=== PATIENT | female | born 1980 | race Two or more races ===

== ENCOUNTER 2020-09-20 14:51 | Outpatient (REF) | payer MEDICAID, SELFPAY | END 2020-09-20 14:52 | disposition home or self-care (01) | LOC: HO.MRI 14:51 | PROVIDERS: Visit Provider Family Medicine | DX: H93.13 Tinnitus, bilateral (principal) | CPT/HCPCS: 70553; A9585 ==

== ENCOUNTER 2020-10-14 09:48 | Outpatient (REF) | payer MEDICAID, SELFPAY ==
--- NOTE | ~2020-10-14 | US_ITS ---
EXAMINATION: US ABDOMEN COMPLETE CLINICAL INFORMATION: Fatty liver. COMPARISON: Ultrasound abdomen complete dated 08/15/2018. Ultrasound renals only dated 09/10/2014. TECHNIQUE: Real-time imaging of the abdominal viscera. FINDINGS: PANCREAS: Normal. ABDOMINAL AORTA: The mid and distal segments are normal in caliber. INFERIOR VENA CAVA: Visualized portions are normal. LIVER: Liver echotexture is increased. The liver is normal in size. The liver contour is normal. No focal hepatic lesion. There is no intrahepatic biliary duct dilatation seen. GALLBLADDER: Normal. The gallbladder is physiologically distended without evidence of stones, sludge, polyps, wall thickening or pericholecystic fluid. COMMON BILE DUCT: Normal in caliber measuring 0.6 cm in diameter. RIGHT KIDNEY: Normal. No hydronephrosis. No renal calculi or focal parenchymal lesions. The kidney measures 10.4 cm in maximum dimension. LEFT KIDNEY: Normal. No hydronephrosis. No renal calculi or focal parenchymal lesions. The kidney measures 9.8 cm in maximum dimension. SPLEEN: Normal. The spleen measures 10.0 cm in maximum dimension. FREE FLUID: None. US/US abdomen complete IMPRESSION: Echogenic liver probably representing fatty infiltration otherwise unremarkable exam
== END 2020-10-14 09:49 | disposition home or self-care (01) ==
LOC: HO.US 09:48
PROVIDERS: PCP Family Medicine; Visit Provider Family Medicine
DX: K76.0 Fatty (change of) liver, not elsewhere classified (principal)
CPT/HCPCS: 76700

== ENCOUNTER 2021-05-29 15:39 | Outpatient (REF) | payer MEDICAID, SELFPAY ==
--- NOTE | ~2021-05-29 | US_ITS ---
EXAMINATION: US PELVIS CLINICAL INFORMATION: Uterine and vaginal bleeding COMPARISON: None TECHNIQUE: Ultrasound of the pelvis is performed using both transabdominal and transvaginal transducers along with Doppler. Transvaginal imaging is performed due to inadequate visualization transabdominally. FINDINGS: Uterus: The uterus is anteverted and measures 9.8 x 4.1 x 6.0 cm. The double wall endometrial thickness is 13 mm. There are multiple cystic lesions within the endometrial canal. The uterus is smooth in contour and has normal myometrial echogenicity. No visible fibroid. Adnexa: Both ovaries are visualized. There is normal color flow to the adnexa. There is no ovarian torsion. There is no pelvic ascites or fluid collection. Right ovary measures 2.0 x 2.3 x 2.5 cm. There is a 1.5 x 1.3 x 1.5 cm cyst. There are multiple additional small follicles throughout the right ovary. Left ovary measures 2.2 x 1.5 x 2.1 cm. US/US pelvic and transvaginal IMPRESSION: 1. Multiple follicles in the right ovary and 1.5cm right ovarian cyst. 2. Multiple cystic lesions in the endometrium suggests adenomyosis.
== END 2021-05-29 15:40 | disposition home or self-care (01) ==
LOC: HO.US 15:39
PROVIDERS: PCP Family Medicine; Visit Provider Family Medicine
DX: N93.9 Abnormal uterine and vaginal bleeding, unspecified (principal); N83.01 Follicular cyst of right ovary; N80.0 Endometriosis of uterus
CPT/HCPCS: 76830; 76856

== ENCOUNTER 2021-07-14 15:15 | Outpatient (REF) | payer MEDICAID, SELFPAY ==
[2021-07-15 03:00] LABS: CT PCR NOT DETECTED (Not Detect.); NG PCR NOT DETECTED (Not Detect.)
[2021-07-15 09:06] LABS: BV Int Neg Control Negative (Negative); BV Int Pos Control Positive (Positive)
== END 2021-07-14 15:16 | disposition home or self-care (01) ==
LOC: HO.LAB 15:15
PROVIDERS: PCP Family Medicine; Visit Provider Advanced Practice Midwife
DX: N92.6 Irregular menstruation, unspecified (principal)
CPT/HCPCS: 81003; 81025; 87480; 87491; 87510; 87591; 87660; 99202

== ENCOUNTER 2021-12-11 11:58 | Outpatient (REF) | payer MEDICAID, SELFPAY ==
[2021-12-11 13:21] LABS: Hematocrit 36.5 % (37.0-47.0); Hemoglobin 11.2 g/dl (12.0-16.0); Mean Corpuscular HGB Conc 30.7 g/dl (31.0-35.0); Mean Corpuscular Hemoglobin 22.4 pg (27.0-33.0); Mean Corpuscular Volume 73.1 fL (80.0-98.0); Mean Platelet Volume 10.2 fL (9.4-12.3); Platelet Count 374 X10*3/uL (160-400); Red Blood Count 4.99 X10*6/uL (4.20-5.50); Red Cell Distribution Width 16.8 % (11.0-16.0); White Blood Count 8.8 X10*3/uL (4.8-10.8)
[2021-12-11 13:59] LABS: HCG Quantitative < 2 mIU/mL; TSH reflex Free T4 3.14 uIU/mL (0.32-4.0)
[2021-12-11 19:22] LABS: CT PCR NOT DETECTED (Not Detect.); NG PCR NOT DETECTED (Not Detect.)
[2021-12-18 06:42] LABS: HPV mRNA E6/E7 rflx Not Detected (Not Detected)
== END 2021-12-11 11:59 | disposition home or self-care (01) ==
LOC: HO.LAB 11:58
PROVIDERS: PCP Family Medicine; Visit Provider Obstetrics & Gynecology
DX: Z01.419 Encounter for gynecological examination (general) (routine) without abnormal findings (principal); N93.9 Abnormal uterine and vaginal bleeding, unspecified; Z11.3 Encounter for screening for infections with a predominantly sexual mode of transmission; Z11.8 Encounter for screening for other infectious and parasitic diseases; Z11.51 Encounter for screening for human papillomavirus (HPV)
CPT/HCPCS: 36415; 84443; 84702; 85027; 87491; 87591; 87624; 88142; 99202

== ENCOUNTER 2022-01-05 09:51 | Outpatient (REF) | payer MEDICAID, SELFPAY | END 2022-01-05 09:52 | disposition home or self-care (01) | LOC: HO.LAB 09:51 | PROVIDERS: PCP Family Medicine; Visit Provider Obstetrics & Gynecology | DX: Z32.02 Encounter for pregnancy test, result negative (principal); N93.9 Abnormal uterine and vaginal bleeding, unspecified | CPT/HCPCS: 58100; 81025; 88305; 88342; 88360 ==

== ENCOUNTER 2022-01-27 13:57 | Outpatient (REF) | payer MEDICAID, SELFPAY ==
--- NOTE | ~2022-01-27 | US_ITS ---
EXAMINATION: US PELVIS CLINICAL INFORMATION: Abnormal bleeding. COMPARISON: Previous pelvic ultrasound most recent May 2021. TECHNIQUE: Ultrasound of the pelvis is performed using both transabdominal and transvaginal transducers along with Doppler. Transvaginal imaging is performed due to inadequate visualization transabdominally. FINDINGS: The uterus is anteverted and retroflexed and measures 9.3 x 4.7 x 5.5 cm in dimension. No focal uterine lesion is seen. Endometrial thickness is normal measuring 1.2 cm. The right ovary measures 2.9 x 1.8 x 2.9 cm. There are multiple small follicles or cysts seen in the right ovary, all measuring less than 1 cm. The left ovary is seen transabdominally only and is normal-appearing. The left ovary measures 2.3 x 1.3 x 1.5 cm. There is no fluid in the pelvis. US/US pelvic and transvaginal IMPRESSION: Unremarkable exam.
--- NOTE | ~2022-01-27 | MM_ITS ---
EXAMINATION: MM SCREENING DIGITAL BREAST TOMOSYNTHESIS, BILATERAL CLINICAL INFORMATION: Screening. Asymptomatic. The lifetime risk of breast cancer based on the Tyrer-Cuzick Model is 9.9%. COMPARISON: Mammography: 01/27/2018. TECHNIQUE: Digital breast tomosynthesis is performed in both the craniocaudal and mediolateral oblique views along with computer-aided detection (CAD). Synthesized 2D images are generated from the tomosynthesis. FINDINGS: There are scattered areas of fibroglandular density (ACR BI-RADS breast composition Category b). There is stable parenchymal pattern of the right breast without new abnormal dominant mass or suspicious grouping of microcalcifications. On craniocaudal view in the deep central aspect there is a region of density most likely representing superimposition of fibroglandular tissue however it is not identified on prior examination and spot compression film is recommended. MM/MM tomosynthesis screening BI IMPRESSION: Left breast density for further evaluation with spot compression view on craniocaudal projection. ASSESSMENT: BI-RADS 0: Incomplete - Need Additional Imaging Evaluation RECOMMENDATION: 1. Additional views of the left breast 2. Targeted ultrasound if warranted after review of the additional views. 3. Radiology department staff will contact the patient for additional imaging. This patient's information was entered into a reminder system with a target due date for their next mammogram.
== END 2022-01-27 13:58 | disposition home or self-care (01) ==
LOC: HO.US 13:57
PROVIDERS: Visit Provider Obstetrics & Gynecology
DX: Z12.31 Encounter for screening mammogram for malignant neoplasm of breast (principal); N93.9 Abnormal uterine and vaginal bleeding, unspecified
CPT/HCPCS: 76830; 76856; 77063; 77067; 99212

== ENCOUNTER 2022-02-12 14:04 | Outpatient (REF) | payer MEDICAID, SELFPAY ==
--- NOTE | ~2022-02-12 | MM_ITS ---
EXAMINATION: MM DIAGNOSTIC DIGITAL BREAST TOMOSYNTHESIS, LEFT CLINICAL INFORMATION: Recall from screening for question of asymmetric density posterior central left breast on CC view. COMPARISON: Mammography: 01/27/2022, baseline mammography 01/27/2018. TECHNIQUE: Digital breast tomosynthesis is performed. 2D images are generated from the tomosynthesis. The following views are obtained: Spot CC x3, standard CC. FINDINGS: There are scattered areas of fibroglandular density (ACR BI-RADS breast composition Category b). There is normal fibroglandular tissue similar to the baseline mammography 2017. There is no interval mass or architectural abnormality. No parenchymal asymmetry or asymmetric density. Results are discussed with the patient at time of visit, using an neuro psych sales specialist. MM/MM tomosynthesis added views L IMPRESSION: No mammographic evidence of malignancy. ASSESSMENT: BI-RADS 1: Negative RECOMMENDATION: Routine annual mammography screening. This patient's information was entered into a reminder system with a target due date for their next mammogram.
== END 2022-02-12 14:05 | disposition home or self-care (01) ==
LOC: HO.MAMMO 14:04
PROVIDERS: Visit Provider Obstetrics & Gynecology
DX: R92.2 Inconclusive mammogram (principal)
CPT/HCPCS: 77061; 77065

== ENCOUNTER → 2022-03-05 12:49 | Outpatient (BNVA) | payer MEDICAID, SELFPAY | PROVIDERS: PCP Family Medicine; Visit Provider Obstetrics & Gynecology | DX: N93.9 Abnormal uterine and vaginal bleeding, unspecified (principal) | CPT/HCPCS: 99212 ==

== ENCOUNTER 2022-07-17 10:42 | Outpatient (REF) | payer MEDICAID, SELFPAY ==
--- NOTE | ~2022-07-17 | US_ITS ---
EXAMINATION: US ABDOMEN COMPLETE CLINICAL INFORMATION: Right upper quadrant pain. Rule out cholecystitis. COMPARISON: Ultrasound abdomen 10/14/2020, ultrasound abdomen 08/15/2018 TECHNIQUE: Real-time imaging of the abdominal viscera. FINDINGS: PANCREAS: Normal. ABDOMINAL AORTA: The proximal, mid, and distal segments are normal in caliber. INFERIOR VENA CAVA: Visualized portions are normal. LIVER: Liver is enlarged measuring 17 cm in span. The liver contour is normal. There is diffuse increased liver parenchymal echogenicity, consistent with infiltrative hepatocellular disease. No focal hepatic lesion. There is no intrahepatic biliary duct dilatation seen. GALLBLADDER: Normal. The gallbladder is physiologically distended without evidence of stones, sludge, polyps, wall thickening or pericholecystic fluid. COMMON BILE DUCT: Minimally greater than expected for age measuring 0.7 cm in diameter. RIGHT KIDNEY: Normal. No hydronephrosis. No renal calculi or focal parenchymal lesions. The kidney measures 10.2 cm in maximum dimension. LEFT KIDNEY: Normal. No hydronephrosis. No renal calculi or focal parenchymal lesions. The kidney measures 10.1 cm in maximum dimension. SPLEEN: Normal. The spleen measures 9.5 cm in maximum dimension. FREE FLUID: None. US/US abdomen complete IMPRESSION: Liver is mildly enlarged. Increased hepatic echogenicity which can be seen in the setting of hepatic steatosis or underlying liver disease. Common bile duct measures minimally greater than expected for age at 0.7 cm. No intrahepatic biliary duct dilatation.
== END 2022-07-17 10:43 | disposition home or self-care (01) ==
LOC: HO.US 10:42
PROVIDERS: PCP Family Medicine; Visit Provider Family Medicine
DX: R10.11 Right upper quadrant pain (principal)
CPT/HCPCS: 76700

== ENCOUNTER 2023-01-07 18:32 | Outpatient (REF) | payer MEDICAID, SELFPAY | END 2023-01-07 18:33 | disposition home or self-care (01) | LOC: HO.HHCLNP 18:32 | PROVIDERS: Visit Provider Family Medicine | DX: N39.0 Urinary tract infection, site not specified (principal) | CPT/HCPCS: 87086 ==

== ENCOUNTER 2023-02-10 09:03 | Outpatient (REF) | payer MEDICAID, SELFPAY ==
[2023-02-10 11:45] LABS: MANUAL DIFF FLAG NO
[2023-02-10 11:56] LABS: Basophils Absolute Auto 0.1 X10*3/uL (0.0-0.2); Basophils Percent Auto 0.5 % (0-2); Eosinophils Absolute Auto 0.3 X10*3/uL (0.0-0.4); Eosinophils Percent Auto 3.4 % (0-4); Hematocrit 36.5 % (37.0-47.0); Hemoglobin 11.2 g/dl (12.0-16.0); Imm Gran Abs Auto 0.05 X10*3/uL (0.00-0.03); Imm Gran Pct Auto 0.5 % (0.0-0.4); Lymphocytes Absolute Auto 3.4 X10*3/uL (1.2-4.9); Lymphocytes Percent Auto 35.9 % (20-40); Mean Corpuscular HGB Conc 30.7 g/dl (31.0-35.0); Mean Corpuscular Hemoglobin 22.9 pg (27.0-33.0); Mean Corpuscular Volume 74.5 fL (80.0-98.0); Mean Platelet Volume 11.2 fL (9.4-12.3); Monocytes Absolute Auto 0.5 X10*3/uL (0.1-1.2); Monocytes Percent Auto 5.2 % (2-11); Neutrophils Absolute Auto 5.1 x10*3/uL (2.0-8.3); Neutrophils Percent Auto 54.5 % (45-73); Platelet Count 279 X10*3/uL (160-400); Red Cell Distribution Width 18.5 % (11.0-16.0); White Blood Count 9.4 X10*3/uL (4.8-10.8)
[2023-02-10 12:13] LABS: Estimated Average Glucose 160 mg/dL; Hemoglobin A1c % 7.2 % (<6.0)
[2023-02-10 12:43] LABS: Alanine Aminotransferase 115 U/L (0-31); Albumin Level 3.5 g/dL (3.5-5.0); Alkaline Phosphatase 109 U/L (39-117); Anion Gap 12 (12-20); Aspartate Amino Transferase 136 U/L (5-31); Bilirubin Direct 0.3 mg/dL (0.0-0.5); Bilirubin Total 0.7 mg/dL (0.0-1.0); Blood Urea Nitrogen 7 mg/dL (9-16); Calcium 8.9 mg/dL (8.4-10.2); Carbon Dioxide 25 mmol/L (22-29); Chloride 104 mmol/L (96-108); Cholesterol 172 mg/dL (<200); Estimated Glomerular Filt Rate > 60; Glucose Random 143 mg/dL (60-115); HDL Cholesterol 43 mg/dL (>40); LDL Cholesterol Calculated 97 mg/dL (<100); Potassium 3.7 mmol/L (3.3-5.1); Sodium 137 mmol/L (135-145); Triglycerides 164 mg/dL (<150)
[2023-02-10 13:05] LABS: CT PCR NOT DETECTED (Not Detect.); NG PCR NOT DETECTED (Not Detect.)
[2023-02-10 13:07] LABS: Free T4 (Free Thyroxine) 0.92 ng/dL (0.71-1.85); Thyroid Stimulating Hormone 5.72 uIU/mL (0.32-4.0); Vitamin D 25-OH Total 19.3 ng/mL (>30)
[2023-02-11 08:13] LABS: HBS Num1 4.32 mIU/mL (0-7.99); HIV AB/AG Nonreactive (Nonreactive); HIV Num 1 0.06 S/CO (0.00-0.99); Hepatitis B Surface Antigen Negative (Negative); ~Hepatitis B Surface Antibody NONREACTIVE (Nonreactive)
[2023-02-11 08:52] LABS: ~HepC Num1 0.07 S/CO (0.00-0.79); ~Hepatitis C Antibody Nonreactive (Nonreactive)
[2023-02-12 04:37] LABS: Syphilis Screen Nonreactive (Nonreactive)
[2023-02-12 12:12] LABS: Alpha Fetoprotein 3.9 ng/mL
== END 2023-02-10 09:04 | disposition home or self-care (01) ==
LOC: HO.HHCL 09:03
PROVIDERS: Visit Provider Family Medicine
DX: Z11.4 Encounter for screening for human immunodeficiency virus [HIV] (principal); Z11.3 Encounter for screening for infections with a predominantly sexual mode of transmission; N39.0 Urinary tract infection, site not specified
CPT/HCPCS: 0353U; 80048; 80061; 80076; 82105; 82306; 83036; 84439; 84443; 85025; 86706; 86780; 86803; 87086; 87340; 87389

== ENCOUNTER 2023-02-17 17:02 | Outpatient (REF) | payer MEDICAID, SELFPAY ==
[2023-02-18 04:44] LABS: CT PCR NOT DETECTED (Not Detect.); NG PCR NOT DETECTED (Not Detect.)
[2023-02-18 11:38] LABS: BV Int Neg Control Negative (Negative); BV Int Pos Control Positive (Positive)
== END 2023-02-17 17:03 | disposition home or self-care (01) ==
LOC: HO.HHCLNP 17:02
PROVIDERS: Visit Provider Family Medicine
DX: R30.0 Dysuria (principal)
CPT/HCPCS: 0353U; 87086; 87480; 87510; 87660

== ENCOUNTER 2023-03-08 07:52 | Outpatient (REF) | payer MEDICAID, OTHER, SELFPAY ==
--- NOTE | ~2023-03-08 | US_ITS ---
EXAMINATION: US ABDOMEN COMPLETE CLINICAL INFORMATION: Fatty liver. COMPARISON: Ultrasound abdomen complete 07/17/2022 and 10/14/2020. TECHNIQUE: Real-time imaging of the abdominal viscera. FINDINGS: PANCREAS: Normal. ABDOMINAL AORTA: The proximal, mid, and distal segments are normal in caliber. INFERIOR VENA CAVA: Visualized portions are normal. LIVER: The liver is normal in size. The liver contour is normal. Liver echotexture is slightly increased. There is a newly appreciated 6 mm minimally complex cyst in the left lobe of the liver. There is no intrahepatic biliary duct dilatation seen. GALLBLADDER: Normal. The gallbladder is physiologically distended without evidence of stones, sludge, polyps, wall thickening or pericholecystic fluid. COMMON BILE DUCT: Normal in caliber measuring 0.7 cm in diameter. RIGHT KIDNEY: Normal. No hydronephrosis. No renal calculi or focal parenchymal lesions. The kidney measures 10.9 cm in maximum dimension. LEFT KIDNEY: Normal. No hydronephrosis. No renal calculi or focal parenchymal lesions. The kidney measures 9.9 cm in maximum dimension. SPLEEN: Normal. The spleen measures 10.7 cm in maximum dimension. FREE FLUID: None. US/US abdomen complete IMPRESSION: Slightly echogenic liver probably representing fatty infiltration. Newly appreciated small liver cyst.
== END 2023-03-08 07:53 | disposition home or self-care (01) ==
LOC: HO.US 07:52
PROVIDERS: PCP Family Medicine; Visit Provider Family Medicine
DX: K76.0 Fatty (change of) liver, not elsewhere classified (principal)
CPT/HCPCS: 76700

== ENCOUNTER 2023-07-07 17:30 | Outpatient (REF) | payer MEDICAID, OTHER, SELFPAY | END 2023-07-07 17:31 | disposition home or self-care (01) | LOC: HO.HHCLNP 17:30 | PROVIDERS: Visit Provider Family Medicine | DX: N89.8 Other specified noninflammatory disorders of vagina (principal) | CPT/HCPCS: 36415; 81513 ==

== ENCOUNTER 2023-07-19 13:19 | Outpatient (REF) | payer MEDICAID, OTHER, SELFPAY | END 2023-07-19 13:20 | disposition home or self-care (01) | LOC: HO.MAMMO 13:19 | PROVIDERS: PCP Family Medicine; Visit Provider Family Medicine | DX: Z12.31 Encounter for screening mammogram for malignant neoplasm of breast (principal) | CPT/HCPCS: 77063; 77067 ==

== ENCOUNTER → 2023-07-19 13:30 | Outpatient (BNV) | payer SELFPAY | PROVIDERS: PCP Family Medicine; Visit Provider Radiology Diagnostic Radiology | DX: Z12.31 Encounter for screening mammogram for malignant neoplasm of breast (principal) | CPT/HCPCS: 77063; 77067 ==

== ENCOUNTER 2023-09-26 21:18 | Emergency (ER) | payer MEDICAID, OTHER, SELFPAY ==
[2023-09-26 21:27] VITALS: BP 140/68; PULSE 86; RESP 19; TEMP 36.5; O2SAT 100; BMI 37.5
[2023-09-26 21:39] LABS: MANUAL DIFF FLAG NO
[2023-09-26 21:40] LABS: Basophils Absolute Auto 0.1 X10*3/uL (0.0-0.2); Basophils Percent Auto 0.5 % (0-2); Eosinophils Absolute Auto 0.3 X10*3/uL (0.0-0.4); Eosinophils Percent Auto 2.6 % (0-4); Hematocrit 32.2 % (37.0-47.0); Imm Gran Abs Auto 0.03 X10*3/uL (0.00-0.03); Imm Gran Pct Auto 0.3 % (0.0-0.4); Lymphocytes Absolute Auto 3.8 X10*3/uL (1.2-4.9); Lymphocytes Percent Auto 38.3 % (20-40); Mean Corpuscular HGB Conc 31.1 g/dl (31.0-35.0); Mean Corpuscular Hemoglobin 21.4 pg (27.0-33.0); Monocytes Absolute Auto 0.5 X10*3/uL (0.1-1.2); Monocytes Percent Auto 4.6 % (2-11); Neutrophils Absolute Auto 5.4 x10*3/uL (2.0-8.3); Neutrophils Percent Auto 53.7 % (45-73); Platelet Count 403 X10*3/uL (160-400); Red Blood Count 4.67 X10*6/uL (4.20-5.50); Red Cell Distribution Width 17.7 % (11.0-16.0)
[2023-09-26 21:55] LABS: Appearance Urine Clear; Color Urine Yellow; Glucose Urine UA Negative (Negative); Leukocyte Esterase Urine Negative (Negative); Nitrite Urine Negative (Negative); PH 6.5 (5.0-9.0); Specific Gravity - Urine <= 1.005 (1.005-1.025); Urine Blood Negative (Negative); Urine Ketones Negative (Negative); Urine Protein Negative (Neg-Trace)
[2023-09-26 21:57] LABS: UPreg QC Valid YES; Urine Pregnancy NEGATIVE (NEGATIVE)
[2023-09-26 22:13] LABS: Alanine Aminotransferase 46 U/L (0-31); Alkaline Phosphatase 109 U/L (39-117); Aspartate Amino Transferase 38 U/L (5-31); Bilirubin Total 0.4 mg/dL (0.0-1.0); Blood Urea Nitrogen 10 mg/dL (9-16); Calcium 9.4 mg/dL (8.4-10.2); Carbon Dioxide 25 mmol/L (22-29); Creatinine Clr Calc Pharmacy 86.5; Estimated Glomerular Filt Rate > 60; Glucose Random 141 mg/dL (60-115); Lipase 47 U/L (8-78); Total Protein 7.8 g/dL (6.5-8.0)
[2023-09-26 22:20] LABS: Chloride 105 mmol/L (96-108); Potassium 3.9 mmol/L (3.3-5.1); Sodium 139 mmol/L (135-145)
[2023-09-26 22:34] LABS: Anion Gap 11 (12-20)
[2023-09-27 03:19] VITALS: BP 121/74; PULSE 71; RESP 16; TEMP 36.7; O2SAT 99
--- NOTE | 2023-09-27 05:42 | ED.ABDPAIN ---
HPI - Abdominal Pain General Chief Complaint: Abdominal Pain Stated Complaint: rght side abd pain Time Seen by Provider: 09/27/23 05:40 Source: patient Mode of arrival: ambulatory Limitations: language barrier History of Present Illness HPI narrative: 43-year-old female with a history of diabetes mellitus who presents emergency department for evaluation of upper abdominal pain x2 days. The patient states that she has had intermittent abdominal pain, she points to her right upper quadrant and epigastric area when asked to localize the pain. She states the pain is a stretching/sharp/burning pain. She states that the pain is immediately worse after eating. The pain does not radiate to her back or shoulders. She denies nausea, vomiting or diarrhea. She states that this is a 1st episode of this type of pain. She states she does get heartburn and occasionally takes an antacid pill but does not know the name of this pill. Related Data Previous Rx's ?Medication ?Instructions ?Recorded medroxyprogesterone 10 mg tablet 10 mg PO DAILY 10 days #30 tabs 03/05/22 (Provera) aluminum hydrox-magnesium carb 254 10 ml PO QID PRN dyspepsia #355 mL 09/27/23 mg-237.5 mg/5 mL oral suspension (Gaviscon Extra Strength) ferrous sulfate 325 mg (65 mg 325 mg PO BID #60 tabs 09/27/23 iron) tablet,delayed release omeprazole 20 mg tablet,delayed 20 mg PO DAILY #30 tabs 09/27/23 release Allergies Allergy/AdvReac Type Severity Reaction Status Date / Time No Known Allergies Allergy Verified 09/26/23 21:29 Review of Systems Review of Systems Yes all other systems are reviewed and are negative FORMERLY [facility], [facility] Past Medical History FOR[facility]LY [facility], [facility] Narrative: Past medical history: Diabetes. Surgical history: . Social history: She denies tobacco use. She drinks alcohol 1-2 beers 2 times a week. She denies drug use. Surgical History History of bilateral tubal ligation Hx of section Family History Family History Maternal Grandmother History of breast cancer Social History Social History Household Members: Spouse and Children Housing: Condominium Alcohol intake: current Patient Tobacco Use Status: Never used Tobacco Advance Directives: No Advance Directives Information Provided: No Sexual orientation: Straight/Heterosexual Gender identity: Female Physical Exam ED Vital Signs: Vital Signs - 24 hr 09/26/23 21:27 09/27/23 03:19 Temperature 97.7 F 98.1 F Pulse Rate 86 71 Respiratory Rate 19 16 Blood Pressure 140/68 H 121/74 Pulse Oximetry 100 99 Oxygen Delivery Method Room Air Room Air BMI result Body Mass Index 37.5 Vital signs were normal Exam: General: Awake, alert in no distress Head: Normocephalic, atraumatic EENT: PERRL, Lids normal, sclera normal, conjunctiva normal, nose normal , ears normal, throat without erythema or exudates Neck: Supple, no adenopathy Lung: breath sounds symmetric, no wheezing, rales or rhonchi Chest: symmetric movement, nontender Heart: regular rate and rhythm, normal S1, S2 no murmurs or rubs Abdomen: Soft, patient has moderate epigastric tenderness, patient has [id number] right upper quadrant tenderness with a negative Amaya sign, she has normoactive bowels sounds, there has no voluntary or involuntary guarding Back: no vertebral tenderness, no CVAT Extremities: no deformities, moves all extremities symmetrically Neuro: Awake, alert, oriented, normal speech, moves all extremities symmetrically Psych: Pleasant, cooperative or Medical Decision Making Medical Decision Making MDM Narrative: 43-year-old female with a history of diabetes mellitus who presents emergency department for evaluation of epigastric, right upper quadrant, intermittent abdominal pain x2 days, immediately worse after eating with no radiation of the pain to her back or shoulder blades. Patient does get dyspepsia and takes a medication PRN but does not know the name this medication. Vital signs were normal. Exam did reveal moderate epigastric and mild to moderate right upper quadrant tenderness with a negative Amaya sign. Differential diagnosis: ?Includes but is not limited to biliary colic, renal colic, gastritis, pancreatitis Following evaluation was ordered: CBC, CMP, lipase, urinalysis, urine test Patient was initially treated with the following: Maalox 30 cc, viscous lidocaine 10 cc, 10 cc orally Course: 06:11 My interpretation patient's laboratory evaluation as follows: Microcytic anemia with an H&H of 10 and 32 with an MCV of 69. Elevated glucose 141. Elevated AST and ALT of 35 and 46. Non elevated bilirubin. Urinalysis was negative. Urine test was negative. Patient's symptoms are most likely consistent with gastritis and I did discuss this with the patient. Of note the patient did have abdominal ultrasound 03/08/2023 which revealed no gallstones. Patient was started on Prilosec 20 mg once a day for 1 month and extra-strength Gaviscon 10 cc before meals and at bedtime. She was also given prescription for ferrous sulfate 325 twice a day for 2 months to treat her microcytic anemia. Patient was given printed and verbal instructions and discharged home Admission/Observation Consideration of admission/observation: Escalation of care including admission/observation considered Lab Data MDM Lab Attestation statement: I reviewed the patient's lab results. 09/26/23 21:35 09/26/23 21:35 Labs: Lab Results 09/26/23 09/26/23 Range/Units 21:35 21:43 WBC 10.0 (4.8-10.8) X10*3/uL RBC 4.67 (4.20-5.50) X10*6/uL Hgb 10.0 L (12.0-16.0) g/dl Hct 32.2 L (37.0-47.0) % MCV 69.0 L (80.0-98.0) fL MCH 21.4 L (27.0-33.0) pg MCHC 31.1 (31.0-35.0) g/dl RDW 17.7 H (11.0-16.0) % Plt Count 403 H D (160-400) X10*3/uL MPV 10.0 (9.4-12.3) fL Immature Gran % (Auto) 0.3 (0.0-0.4) % Neut % (Auto) 53.7 (45-73) % Lymph % (Auto) 38.3 (20-40) % Jerome % (Auto) 4.6 (2-11) % Eos % (Auto) 2.6 (0-4) % Baso % (Auto) 0.5 (0-2) % Lymph # (Auto) 3.8 (1.2-4.9) X10*3/uL Jerome # (Auto) 0.5 (0.1-1.2) X10*3/uL Eos # (Auto) 0.3 (0.0-0.4) X10*3/uL Baso # (Auto) 0.1 (0.0-0.2) X10*3/uL Abs Immat Gran (auto) 0.03 (0.00-0.03) X10*3/uL Absolute Neuts (auto) 5.4 (2.0-8.3) x10*3/uL Absolute Nucleated RBC 0.000 (0.0-0.012) X10*3/uL Nucleated RBC % (auto) 0.0 (0.0-0.2) /100WBC Sodium 139 (135-145) mmol/L Potassium 3.9 (3.3-5.1) mmol/L Chloride 105 (96-108) mmol/L Carbon Dioxide 25 (22-29) mmol/L Anion Gap 11 L (12-20) BUN 10 (9-16) mg/dL Creatinine 0.83 (0.5-1.4) mg/dL Estim Creat Clear Calc 86.5 Estimated GFR > 60 Random Glucose 141 H (60-115) mg/dL Calcium 9.4 (8.4-10.2) mg/dL Total Bilirubin 0.4 (0.0-1.0) mg/dL AST 38 H (5-31) U/L ALT 46 H (0-31) U/L Alkaline Phosphatase 109 (39-117) U/L Total Protein 7.8 (6.5-8.0) g/dL Albumin 4.0 (3.5-5.0) g/dL Lipase 47 (8-78) U/L Urine Color Yellow Urine Appearance Clear Urine pH 6.5 (5.0-9.0) Ur Specific [place] <= 1.005 (1.005-1.025) Urine Protein Negative (Neg-Trace) mg/dL Urine Glucose (UA) Negative (Negative) mg/dL Urine Ketones Negative (Negative) mg/dL Urine Blood Negative (Negative) Urine Nitrite Negative (Negative) Ur Leukocyte Esterase Negative (Negative) Urine Test NEGATIVE (NEGATIVE) Independent Historian Clinical information obtained from an independent historian. History obtained from or confirmed by: Spouse Prescription Management I considered prescription management with: Other (Proton pump inhibitor, antacid, iron supplement) Chronic Conditions Patient?s care impacted by: Diabetes Discharge Plan Discharge Clinical Impression: Microcytic anemia Abdominal pain Qualifiers: Abdominal location: epigastric Qualified Code(s): R10.13 - Epigastric pain Patient Disposition: Home, Self-Care Instructions: Gastritis (ED) Additional Instructions: Your blood work was unremarkable except for anemia with most likely was caused by iron deficiency. Take ferrous sulfate 325 mg pills, 1 pill twice a day for 2 months. Your exam did reveal increased tenderness over your stomach area. At this time I believe that you have too much acid/inflammation in your stomach (gastritis) that is causing your pain specially since the pain is worse immediately after eating. Take Prilosec (omeprazole) 20 mg pills, 1 pill once a day for 1 month. ?This medication shuts off your acid production and lets the inflammation in your stomach and esophagus heal. Take extra-strength Gaviscon 10 mL (2 tsp) 4 times a day as needed for abdominal pain. Follow-up with your doctor in 2 days. Please return to the emergency department if your symptoms get worse or if you develop any symptoms that are concerning to you. Prescriptions: New Gaviscon Extra Strength 254-237.5 mg/5 mL suspension 10 ml PO QID PRN (Reason: dyspepsia) Qty: 355 0RF omeprazole 20 mg tablet,delayed release (DR/EC) 20 mg PO DAILY Qty: 30 0RF ferrous sulfate 325 mg (65 mg iron) tablet,delayed release (DR/EC) 325 mg PO BID Qty: 60 0RF No Action medroxyprogesterone [Provera] 10 mg tablet 10 mg PO DAILY 10 Days Qty: 30 0RF Rx Instructions: start Provera 1 tablet daily from day 15-24 cyclically every months, day 1 being 1st day of menses Print Language: Setswana
[2023-09-27 06:00] VITALS: BP 109/47; PULSE 63; RESP 14; TEMP 36.7; O2SAT 98
[2023-09-27] MEDS: Magnesium Hydrox/Alum Hydrox 30 ML ORAL.SUSP PO (06:33)
[2023-09-27] MEDS: PHENobarb/Hyoscy/Atropine/Scop 10 ML ELIXIR PO (06:33)
[2023-09-27] MEDS: Lidocaine HCl Viscous 2 % 15 ML SOLUTION 10 ML PO (06:33)
[2023-09-27 06:40] VITALS: BP 109/47; PULSE 63; RESP 14; TEMP 36.7; O2SAT 98
== END 2023-09-27 06:41 | disposition home or self-care (01) ==
PROVIDERS: Emergency Provider Emergency Medicine Emergency Medical Services; PCP Family Medicine
DX: D50.9 Iron deficiency anemia, unspecified (principal); R10.11 Right upper quadrant pain; R10.13 Epigastric pain; Z79.899 Other long term (current) drug therapy
CPT/HCPCS: 36415; 80053; 81003; 81025; 83690; 85025; 99283

== ENCOUNTER 2023-10-18 10:40 | Outpatient (REF) | payer MEDICAID, OTHER, SELFPAY ==
[2023-10-18 11:42] LABS: Hematocrit 33.8 % (37.0-47.0); Hemoglobin 10.4 g/dl (12.0-16.0); Mean Corpuscular HGB Conc 30.8 g/dl (31.0-35.0); Mean Corpuscular Hemoglobin 21.3 pg (27.0-33.0); Mean Corpuscular Volume 69.3 fL (80.0-98.0); Mean Platelet Volume 10.3 fL (9.4-12.3); Platelet Count 358 X10*3/uL (160-400); Red Blood Count 4.88 X10*6/uL (4.20-5.50); Red Cell Distribution Width 17.7 % (11.0-16.0); White Blood Count 7.6 X10*3/uL (4.8-10.8)
[2023-10-18 11:57] LABS: Estimated Average Glucose 137 mg/dL; Hemoglobin A1c % 6.4 % (<6.0)
[2023-10-18 12:32] LABS: Alanine Aminotransferase 34 U/L (0-31); Albumin Level 3.8 g/dL (3.5-5.0); Alkaline Phosphatase 121 U/L (39-117); Amylase 66 U/L (28-100); Anion Gap 15 (12-20); Aspartate Amino Transferase 43 U/L (5-31); Bilirubin Direct 0.2 mg/dL (0.0-0.5); Bilirubin Total 0.5 mg/dL (0.0-1.0); Blood Urea Nitrogen 10 mg/dL (9-16); Calcium 9.1 mg/dL (8.4-10.2); Carbon Dioxide 25 mmol/L (22-29); Chloride 102 mmol/L (96-108); Cholesterol 142 mg/dL (<200); Estimated Glomerular Filt Rate > 60; Glucose Random 111 mg/dL (60-115); HDL Cholesterol 48 mg/dL (>40); Iron 196 mcg/dL (30-160); LDL Cholesterol Calculated 58 mg/dL (<100); Lipase 27 U/L (8-78); Percent Iron Saturation 51 % (15-50); Potassium 4.2 mmol/L (3.3-5.1); Sodium 138 mmol/L (135-145); Total Iron Binding Capacity 388 mcg/dL (228-428); Total Protein 7.4 g/dL (6.5-8.0); Triglycerides 183 mg/dL (<150); Unsaturated Iron Binding 192 ug/dL
[2023-10-18 12:43] LABS: Vitamin B12 658 pg/mL (200-900)
[2023-10-18 12:47] LABS: Ferritin 31 ng/mL (10-250); Free T4 (Free Thyroxine) 0.93 ng/dL (0.71-1.85); Thyroid Stimulating Hormone 5.69 uIU/mL (0.32-4.0); Vitamin D 25-OH Total 15.4 ng/mL (>30)
== END 2023-10-18 10:41 | disposition home or self-care (01) ==
LOC: HO.HHCLNP 10:40
PROVIDERS: Visit Provider Family Medicine
DX: R01.1 Cardiac murmur, unspecified (principal); E11.9 Type 2 diabetes mellitus without complications; D64.9 Anemia, unspecified
CPT/HCPCS: 36415; 80048; 80061; 80076; 82150; 82306; 82607; 82728; 82746; 83036; 83540; 83690; 84439; 84443; 85027

== ENCOUNTER 2023-10-21 10:21 | Outpatient (REF) | payer MEDICAID, OTHER, SELFPAY ==
--- NOTE | ~2023-10-21 | US_ITS ---
EXAMINATION: US ABDOMEN COMPLETE CLINICAL INFORMATION: Right upper quadrant pain, follow up complex liver cyst. COMPARISON: Ultrasound abdomen complete 03/08/2023 and 07/17/2022. TECHNIQUE: Real-time imaging of the abdominal viscera. FINDINGS: PANCREAS: Normal. ABDOMINAL AORTA: The proximal, mid, and distal segments are normal in caliber. INFERIOR VENA CAVA: Visualized portions are normal. LIVER: The liver is normal in size. The liver contour is normal. There is diffuse increased liver parenchymal echogenicity, consistent with hepatic steatosis. Again seen is a 7 mm complex cyst in the left lobe of the liver, unchanged from prior. No new or suspicious liver masses are seen. There is no intrahepatic biliary duct dilatation seen. GALLBLADDER: The gallbladder is physiologically distended without evidence of stones, sludge, polyps, wall thickening or pericholecystic fluid. COMMON BILE DUCT: Normal in caliber measuring 0.4 cm in diameter. RIGHT KIDNEY: Normal. No hydronephrosis. No renal calculi or focal parenchymal lesions. The kidney measures 10.8 cm in maximum dimension. LEFT KIDNEY: Normal. No hydronephrosis. No renal calculi or focal parenchymal lesions. The kidney measures 9.6 cm in maximum dimension. SPLEEN: Normal. The spleen measures 10.7 cm in maximum dimension. FREE FLUID: None. US/US abdomen complete IMPRESSION: 1. Hepatic steatosis. 2. Stable 7 mm complex cyst in the left lobe of the liver.
== END 2023-10-21 10:22 | disposition home or self-care (01) ==
LOC: HO.US 10:21
PROVIDERS: PCP Family Medicine; Visit Provider Family Medicine
DX: R10.11 Right upper quadrant pain (principal)
CPT/HCPCS: 76700

== ENCOUNTER 2024-06-10 23:12 | Emergency (ER) | payer MEDICAID, OTHER, SELFPAY ==
--- NOTE | ~2024-06-10 | XR_ITS ---
CLINICAL HISTORY: sob 1 view chest x-ray. Comparison: None Findings: No consolidation, pneumothorax, or effusion. Heart size normal. Impression: 1. No acute cardiopulmonary process. No focal pulmonary consolidation. This document has been electronically signed by: Colby Villanueva MD on 06/11/2024 00:43:15
[2024-06-10 23:38] VITALS: BP 125/74; PULSE 100; RESP 16; TEMP 37.9; O2SAT 98; BMI 38.9
[2024-06-11 00:32] LABS: Influenza A PCR NEGATIVE (Negative); Influenza B PCR NEGATIVE (Negative); Resp Syncy Virus RNA Qual PCR NEGATIVE (Negative); SARS COV2 PCR INHOUSE POSITIVE (Negative)
--- NOTE | 2024-06-11 02:38 | ED_ITS ---
HPI - URI/Sore Throat General Chief Complaint: Upper Respiratory Symptoms Stated Complaint: SOB, vomiting Time Seen by Provider: 06/11/24 02:17 Source: patient Mode of arrival: ambulatory Limitations: no limitations History of Present Illness ED Provider: Dr. Alena Valderrama HPI Narrative: Patient comes to the emergency room complaining of an episode of vomiting, cough, chest pain with inspiration. Patient reports diffuse body aches. Patient states that she has kids at home that have the same symptoms. Patient took Tylenol approximately 6 hours ago without any significant relief. Patient denies shortness of breath. Also, patient reports that she has dysuria. Denies hematuria. Denies flank pain. Related Data Previous Rx's ?Medication ?Instructions ?Recorded medroxyprogesterone 10 mg tablet 10 mg PO DAILY 10 days #30 tabs 03/05/22 (Provera) aluminum hydrox-magnesium carb 254 10 ml PO QID PRN dyspepsia #355 mL 09/27/23 mg-237.5 mg/5 mL oral suspension (Gaviscon Extra Strength) ferrous sulfate 325 mg (65 mg 325 mg PO BID #60 tabs 09/27/23 iron) tablet,delayed release omeprazole 20 mg tablet,delayed 20 mg PO DAILY #30 tabs 09/27/23 release acetaminophen 500 mg tablet 500 mg PO QID PRN fever or pain 06/11/24 #20 tabs ketorolac 10 mg tablet 10 mg PO BID #8 tabs 06/11/24 Allergies Allergy/AdvReac Type Severity Reaction Status Date / Time No Known Allergies Allergy Verified 06/10/24 23:40 Review of Systems Review of Systems: Constitutional : No Weight loss, No Fever, No Chills, No Night Sweats, No Fatigue, No Malaise ENT/Mouth : No Hearing loss, No Ear Pain, No Nasal Congestion, No Sinus Pain, No Hoarseness, No sore throat, No Rhinorrhea, No Swallowing Difficulty Eyes: No Eye Pain, No Swelling, No Redness, No Foreign Body, No Discharge, No Vision Changes Cardiovascular : No Chest Pain, No SOB, No Dyspnea on Exertion, No Orthopnea, No Edema, No Palpitations Respiratory : Complaining of cough, pain with deep inspiration Gastrointestinal : No Nausea, No Vomiting, No Diarrhea, No Constipation, No abdominal Pain, No Hematochezia, No Melena Genitourinary : Complaining of Dysuria, No Urinary Frequency, No Hematuria, No Urinary Incontinence, No Urgency, No Flank Pain, No Urinary Flow Changes, No Hesitancy Musculoskeletal : No joint pain, No Myalgias, No Joint Swelling Skin : No Skin Lesions, No rash Neuro : No Weakness, No Numbness, No Paresthesias, No Loss of Consciousness, No Dizziness, No Headache Psych : No Anxiety/Panic, No Depression, No SI/HI/AH/VH, No Social Issues, Heme/Lymph: No Bruising, No Bleeding,No Lymphadenopathy Endocrine : No Polyuria, No Polydipsia, No Temperature Intolerance [facility] Past Medical History Medical History (Updated 06/11/24 @ 02:41 by Alena Valderrama MD) Type 2 diabetes mellitus Surgical History History of bilateral tubal ligation Hx of section Family History Family History Maternal Grandmother History of breast cancer Social History Social History Household Members: Spouse and Children Housing: Condominium Alcohol intake: current Patient Tobacco Use Status: Never used Tobacco Advance Directives: No Do you have a plan to hurt others: No Plan Sexual orientation: Straight/Heterosexual Gender identity: Female Physical Exam Vital Signs: Vital Signs: Last Vital Signs Temp 100.3 F 06/10/24 23:38 Pulse 100 06/10/24 23:38 Resp 16 06/10/24 23:38 BP 125/74 06/10/24 23:38 Pulse Ox 98 06/10/24 23:38 O2 Del Method Room Air 06/10/24 23:38 BMI result Body Mass Index 38.9 Const: Other: Appearance: Alert. Oriented X3. No acute distress. Eyes: Pupils equal, round and reactive to light. ENT: Pharynx normal. Neck: Normal inspection. Neck supple. No lymph nodes noted. No crepitus CVS: Normal heart rate and rhythm. Pulses normal. Normal S1 and S2 Respiratory: No respiratory distress. Breath sounds normal. No Wheezing. No rales Abdomen: Soft and nontender. No rigidity. No distention. Skin: Skin warm and dry. Normal skin color. Normal skin turgor. Extremities: No lower extremity edema. No Lacerations. No Rash Neuro: Oriented X 3. No motor deficit. No sensory deficit. Moving all extremities. No slurred speech. CN 2 through 12 grossly intact Psych: calm, cooperative, normal affect Medical Decision Making Medical Decision Making [facility] Narrative: My interpretation of labs: Patient's serology positive for COVID-19. Chest x-ray negative for infiltrates Patient's vitals stable, blood pressure 125/74, respirations 16, oxygen saturation 98% on room air. Urinalysis negative for UTI Patient was given a dose of IM ketorolac for symptomatic relief. Differential Diagnosis Differential Diagnoses: The differential diagnosis associated with the presentation includes (COVID, RSV, influenza, viral URI, UTI) Lab Data [facility] Lab Attestation statement: I reviewed the patient's lab results. Labs: Lab Results 06/10/24 06/11/24 Range/Units 23:52 02:54 Urine Color Straw Urine Appearance Clear Urine pH 7.0 (5.0-9.0) Ur Specific George <= 1.005 (1.005-1.025) Urine Protein Negative (Neg-Trace) mg/dL Urine Glucose (UA) Negative (Negative) mg/dL Urine Ketones Negative (Negative) mg/dL Urine Blood Negative (Negative) Urine Nitrite Negative (Negative) Ur Leukocyte Esterase Trace H (Negative) Urine RBC 0-2 (0-2) /HPF Urine WBC 0-5 (0-5) /HPF Ur Squamous Epith Cells 0-2 (0-2) /HPF Urine Bacteria None Seen (None Seen) Hyaline Casts 0-2 (0-2) /LPF Influenza Type A (PCR) NEGATIVE (Negative) Influenza Type B (PCR) NEGATIVE (Negative) RSV RNA Qual (PCR) NEGATIVE (Negative) SARS-CoV-2 RNA (RT-PCR) POSITIVE A (Negative) Discharge Plan Discharge Clinical Impression: COVID-19, Dysuria Patient Disposition: Home, Self-Care Instructions: Dysuria (ED), COVID-19 (Coronavirus Disease 2019) (ED) Additional Instructions: Please follow-up with your primary care physician tomorrow. If you have any wo rsening or new symptoms, please return to the emergency room or call 911 Prescriptions: New ketorolac 10 mg tablet 10 mg PO BID Qty: 8 0RF Rx Instructions: Do not use ibuprofen with this medication, you may use Tylenol acetaminophen 500 mg tablet 500 mg PO QID PRN (Reason: fever or pain) Qty: 20 0RF No Action Gaviscon Extra Strength 254-237.5 mg/5 mL suspension 10 ml PO QID PRN (Reason: dyspepsia) Qty: 355 0RF omeprazole 20 mg tablet,delayed release (DR/EC) 20 mg PO DAILY Qty: 30 0RF ferrous sulfate 325 mg (65 mg iron) tablet,delayed release (DR/EC) 325 mg PO BID Qty: 60 0RF medroxyprogesterone [Provera] 10 mg tablet 10 mg PO DAILY 10 Days Qty: 30 0RF Rx Instructions: start Provera 1 tablet daily from day 15-24 cyclically every months, day 1 being 1st day of menses Print Language: English
[2024-06-11 03:11] LABS: Appearance Urine Clear; Color Urine Straw; Glucose Urine UA Negative (Negative); Leukocyte Esterase Urine Trace (Negative); Nitrite Urine Negative (Negative); Specific Gravity - Urine <= 1.005 (1.005-1.025); UMIC TRIGGER UACC YES; Urine Blood Negative (Negative); Urine Ketones Negative (Negative); Urine Protein Negative (Neg-Trace)
[2024-06-11 03:12] LABS: Bacteria Urine None Seen (None Seen); Hyaline Casts Urine 0-2 /LPF (0-2); RBC Urine 0-2 /HPF (0-2); Squamous Epithelial Cell Urine 0-2 /HPF (0-2); WBC Urine 0-5 /HPF (0-5)
[2024-06-11] MEDS: Ketorolac Tromethamine 60 MG/2 ML VIAL IM (03:25)
[2024-06-11 03:32] VITALS: BP 130/64; PULSE 86; RESP 17; TEMP 37.4; O2SAT 99
[2024-06-11 03:33] VITALS: BP 130/64; PULSE 86; RESP 17; TEMP 37.4; O2SAT 99
== END 2024-06-11 03:33 | disposition home or self-care (01) ==
PROVIDERS: Emergency Provider Emergency Medicine; PCP Family Medicine
DX: U07.1 COVID-19 (principal); J02.8 Acute pharyngitis due to other specified organisms; R06.02 Shortness of breath; R07.89 Other chest pain; M79.10 Myalgia, unspecified site; R30.0 Dysuria
CPT/HCPCS: 0241U; 71045; 81001; 81003; 96372; 99284; J1885

== ENCOUNTER → 2024-06-10 23:50 | Outpatient (BNV) | payer MEDICAID, SELFPAY | PROVIDERS: PCP Family Medicine; Visit Provider Radiology Diagnostic Radiology | DX: R06.02 Shortness of breath (principal) | CPT/HCPCS: 71045 ==

== ENCOUNTER 2024-09-22 11:23 | Outpatient (REF) | payer MEDICAID, OTHER, SELFPAY ==
--- OUTSIDE RECORDS SUMMARY | 2024-09-22 12:30 | XMS_ITS | Clinical Summary ---
Author Organization [employer] Address [address] [facility] [address] [place] [address] Care Team Providers Care Wind Energy Engineer Name Role Phone Mala Burton DO Primary Care Provider [phone] Allergies No known active allergies Medications Blood Glucose Monitoring Suppl (FreeStyle Lite) w/Device kit 1 each 2 times daily. 1 kit 3 Active glucose 4 g chewable tablet Chew 4 tablets (16 g) if needed for low blood sugar. 50 tablet 12 3 Active Diclofenac Sodium 1 % gel Apply 2 g topically if needed in the morning, at noon, in the evening, and at bedtime (pain). 150 g 2 4 Active docusate sodium (Colace) 100 MG capsule Take 1 capsule (100 mg) by mouth Once per day. With iron supplement 90 capsule 3 4 10/11/19 25 Active omeprazole (PriLOSEC) [address] [place] ons:RUQ pain Take 1 capsule (20 mg) by mouth before breakfast. Do not crush or chew. 90 capsule 3 4 10/11/19 25 Active atorvastatin (Lipitor) 10 MG tablet Take 1 tablet (10 mg) by mouth at bedtime. 90 tablet 3 4 02/18/20 25 Active metFORMIN XR (Glucophage-XR) 500 MG 24 hr tablet Take 1 tablet (500 mg) by mouth with evening meal. Do not crush, chew, or split. 90 tablet 3 4 02/18/20 25 Active baclofen (Lioresal) 10 MG tablet Take 1 tablet (10 mg) by mouth if needed in the morning, at noon, and at bedtime for muscle spasms. 60 tablet 3 4 02/18/20 25 Active Multiple Vitamins-Minera ls (Multivitamin Women) tablet Take 1 tablet by mouth Once per day. 90 tablet 3 4 02/18/20 25 Active famotidine (Pepcid) 20 MG tablet TAKE 1 TABLET BY MOUTH EVERY MORNING AND AT BEDTIME NEEDED FOR HEART BURN 180 tablet 1 4 Active Sodium Fluoride (PreviDent 5000 Plus) 1.1 % cream Apply 1 mg to teeth 3 times daily. 1 g 3 4 Active glucose blood (FREESTYLE LITE) test strip USE DIRECTED TO TEST BLOOD SUGAR TWICE DAILY 100 strip 5 4 Active Alcohol Swabs (Alcohol Prep) 70 % pads USE DIRECTED TO TEST BLOOD SUGAR TWICE DAILY 100 each 5 4 Active Additional Information Patient not taking.Reported on 07/11/2024 TRUEplus Lancets 33G misc USE DIRECTED TO TEST BLOOD SUGAR TWICE DAILY 100 each 5 4 Active Active Problems Problem Noted Date Diagnosed Date Hyperlipidemia 02/18/2024 Healthcare maintenance 02/18/2024 Anemia 10/11/2023 Bone lesion 02/17/2023 Type 2 diabetes mellitus 02/17/2023 Fatty liver 02/17/2023 Chronic gastroesophageal reflux disease 11/25/19 16 BMI 36.0-36.9,adult 11/25/2015 Vitamin D deficiency 11/25/2015 Resolved Problems Problem Noted Date Diagnosed Date Resolved Date Depressive disorder 11/25/2015 02/18/20 23 Encounters Date Type Department Care Team Description 09/22/2024 10:15 AM EDT Office Visit [facility] [address] [place] [phone] Mala Burton DO Type 2 diabetes mellitus without complication, without long-term current use of insulin ([facility]) (Primary Dx); Other hyperlipidemia; Fatty liver; Chronic gastroesophageal reflux disease; Anemia, unspecified type; Bone lesion; Paresthesia of both hands; Chest pain, unspecified type; Healthcare maintenance; Encounter for immunization 09/22/2024 Travel 09/13/2024 Patient Outreach [facility] [address] [place] [phone] Mala Burton DO Pre-visit Planning ((Unable to reach for PVP screening, LVM)) 08/14/2024 10:30 AM EDT Office Visit [facility] [address] [place] [address] Oliveira-Acost Amada tam DDS Encounter for dental examination (Primary Dx) 08/02/2024 10:30 AM EST Office Visit [facility] [address] [place] [address] Oliveira-Acost Amada tam DDS Dental caries (Primary Dx) 07/27/2024 Telephone [facility] [address] [place] [address] Mala Burton DO Recall Appt. 07/27/2024 Travel 07/11/2024 2:30 PM EST Office Visit [facility] [address] [place] [address] Lea Lucas Dental plaque (Primary Dx); Dental calculus 07/03/2024 10:30 AM EST Office Visit [facility] [address] [place] [address] Oliveira-Acost aAmada DDS Dental caries (Primary Dx) from Last 3 Months Immunizations Name Administration Dates Next Due Hep B, Adolescent or Pediatric 03/17/2011 Hep B, adult 02/18/2024,02/12/2011 Influenza injectable quadrivalent preservative f ree 07/07/2023,04/27/2019 Influenza, IIV3, injectable 02/27/2014, 0 Influenza, Split (incl. purified surface antigen ) 03/27/2013 Influenza, seasonal, injectable, preservative fr ee 02/18/2024 Moderna Covid-19 Vaccine 12+ 10/11/2020,09/14/19 Moderna Covid-19 Vaccine 6+ Bivalent 07/17/2022 Pfizer Covid-19 Vaccine 12+ 09/22/2024 Pneumococcal Conjugate PCV 20 02/17/2023 Tdap 10/03/2019,09/11/2013 Family History Medical History Relation Name Comments Diabetes Maternal Grandfather Breast cancer Maternal Grandmother Diabetes Maternal Grandmother Hypertension Maternal Grandmother Diabetes Mother Diabetes Sister Relation Name Status Comments Maternal Grandfather Maternal Grandmother Mother Sister Social History Tobacco Use Types Packs/Day Years Used Date Smoking Tobacco: Never Passive Smoke Exposure: Never Smokeless Tobacco: Never Tobacco Cessation:Counseling Given: Not Answered Alcohol Use Standard Drinks/Week Comments Never 0 (1 standard drink = 0.6 oz pur e alcohol) Depression Answer Date Recorded Patient Health Questionnaire-9 Score 0 09/22/2024 Patient Health Questionnaire-9 Score 0 09/22/2024 Last PHQ-9: Questionnaire Data Not on file 0 09/22/2024 Housing Stability Answer Date Recorded What is your housing situation today? I have stephan beckett 09/22/[address] you li ve. Do you have problems with any of the following? None of the above 09/22/2024 Food Insecurity Answer Date Recorded Within the past 12 months, y ou worried that your food would run out before you got money to buy more: Never True 09/22/2024 Within the past 12 months,th e food you bought just didn't last and you didn't have enough money to get more: Never True Transportation Answer Date Recorded In the past 12 months, has l ack of transportation kept you from medical appts, meetings, work or from getting things needed for daily living? No 09/22/2024 Utilities Answer Date Recorded In the past 12 months, has t he electric, gas, oil or water company threatened to shut off services in your home? No 09/22/2024 Depression Answer Date Recorded Patient Health Questionnaire-2 Score 0 09/22/2024 Internet Access Answer Date Recorded Internet Access Q1 No 09/22/2024 Internet Access Q2 I do not want or need it 09/05 Comments No Sex and Gender Information Value Date Recorded Sex Assigned at Female 04/06/2022 10:20 AM EDT Legal Sex Female 10:20 AM EDT Gender Identity Female 04/06/2022 10:20 AM EDT Sexual Orientation Straight 04/06/2022 10 :20 AM EDT Last Filed Vital Signs Vital Sign Reading Time Taken Comments Blood Pressure 105/62 09/22/2024 10:23 AM EDT Pulse 73 09/22/2024 10:23 AM EDT Temperature 36.3 ??C (97.3 ??F) 09/22/2024 10:23 AM E DT Respiratory Rate 17 09/22/2024 10:23 AM EDT Oxygen Saturation 98% 09/22/2024 10:23 AM EDT Inhaled Oxygen Concentration - - Weight 88.5 kg (195 lb) 09/22/2024 10:23 AM EDT Height 157.5 cm (5' 2 ) 09/22/2024 10:23 AM EDT Body Mass Index 35.67 09/22/2024 10:23 AM EDT Plan of Treatment Upcoming Encounters Date Type Department Care Team (Late st Contact Info) Description 11/14/2024 2:00 PM EDT Office Visit [facility] [address] [place] [address] Lea Lucas 01/16/2025 3:00 PM EDT Office Visit [facility] [address] [place] [address] Lea Lucas Health Maintenance Due Date Last Done Comments Diabetes: Foot Exam 09/09/1991 Family Planning (PISQ) 1996 Diabetes: Urine Protein Screening 2000 Hepatitis A Vaccines (1 of 2 - Risk 2-dose series) 2000 Hepatitis B Vaccines (3 of 3 - 19+ 3-dose series) 04/14/2024 02/18/2024, 03/17/2011, 02/12/2011 Mammogram 07/19/2024 07/19/2023, 09/0 01/2022, 01/27/2018 Lipid Panel 10/17/2024 10/18/2023, 09/0 11/2022, 05/20/2021, Additional history exists Dental Oral Exam 11/15/2024 05/16/2024, , 07/07/2016, Additional history exists Dental Prophylaxis 01/09/2025 07/11/2024, 0 12/02/2018, 02/15/2017, Additional history exists Diabetes: Hemoglobin A1C 03/24/2025 025, 02/18/2024, 10/18/2023, Additional history exists Dental X-Ray: Bitewings 05/17/2025 05/16/20 24, 01/08/2020, 12/02/2018, Additional history exists Alcohol/Substance Use Screening 09/22/2025 09/22/2024 Depression Screening 09/22/2025 09/22/2024, 09/23/19 25 SDOH Screening 09/22/2025 09/22/2024 Tobacco Screening 09/22/2025 09/22/2024 Eye Exam 11/17/2025 11/18/2023, 11/05, 11/18/2023, Additional history exists Cervical Cancer Screening 12/11/2026 HPV/Cotest 12/11/2026 12/11/2021, 07/0 12/2021, 12/11/2021, Additional history exists Pap Smear 12/11/2026 12/11/2021 Dental X-Ray: Full Mouth 05/17/2027 05/16/2024, 12/05 DTaP/Tdap/Td Vaccines (3 - Td or Tdap) 10/02/2029 10/03/2019, 09/11/2013 Zoster Vaccines (1 of 2) 09/09/2031 RSV Patients and Patients Aged 60 years or older (1 - 1-dose 75+ series) 2056 HIV Screening Completed 02/10/2023, 05/07, 04/30/2020, Additional history exists Hepatitis C Screening Completed 02/10/2023 , 05/20/2021, 04/30/2020, Additional history exists Pneumococcal Vaccine: Pediatrics (0 to 5 Years) and At-Risk Patients (6 to 49) Years) Completed 02/17/2023 Influenza Vaccine Completed 02/18/2024, , 04/27/2019, Additional history exists COVID-19 Vaccine Completed 09/22/2024, 03/2023, 10/11/2020, Additional history exists HIB Vaccines Aged Out No longer eligi ble based on patient's age to complete this topic HPV Vaccines Aged Out No longer eligi ble based on patient's age to complete this topic IPV Vaccines Aged Out No longer eligi ble based on patient's age to complete this topic Meningococcal Vaccine Aged Out No romina alex eligible based on patient's age to complete this topic RSV under 20 months Aged Out No longe r eligible based on patient's age to complete this topic Rotavirus Vaccines Aged Out No longer eligible based on patient's age to complete this topic Procedures Procedure Name Priority Date/Time Associated Diagnosis Comments POCT GLYCATED HEMOGLOBIN, TOTAL Routine 09/22/2024 10:53 AM EDT Type 2 diabetes mellitus without complication, without long-term current use of insulin ([facility]) POCT GLUCOSE Routine 09/22/2024 10:53 AM EDT Type 2 diabetes mellitus without complication, without long-term current use of insulin ([facility]) NO CHARGE PROCEDURE Routine 08/14/2024 1 0:30 AM EDT Encounter for dental examination CASE PRESENTATION, DETAILED AND EXTENSIVE TREATMENT PLANNING Routine 08/02/2024 10:30 AM EST Dental caries 3 MOD RESIN-BASED COMPOSITE - 3 SURF, POSTERIOR Routine 08/02/2024 10:30 AM EST Dental caries ORAL HYGIENE INSTRUCTIONS Routine 07/11/2024 2:30 PM EST Dental plaque Dental calculus CASE PRESENTATION, DETAILED AND EXTENSIVE TREATMENT PLANNING Routine 07/11/2024 2:30 PM EST PROPHYLAXIS - ADULT Routine 07/11/2024 2 :30 PM EST Dental plaque Dental calculus CASE PRESENTATION, DETAILED AND EXTENSIVE TREATMENT PLANNING Routine 07/03/2024 10:30 AM EST Dental caries 28 DO RESIN-BASED COMPOSITE - 2 SURF, POSTERIOR Routine 07/03/2024 10:30 AM EST Dental caries 29 MOD RESIN-BASED COMPOSITE - 3 SURF, POSTERIOR Routine 07/03/2024 10:30 AM EST Dental caries 31 MEKHI RESIN-BASED COMPOSITE - 2 SURF, POSTERIOR Routine 07/03/2024 10:30 AM EST Dental caries INTRAORAL - COMPLETE SERIES OF RADIOGRAPHIC IMAGES Routine 05/16/2024 1:30 PM EST Encounter for dental examination Dental calculus Dental caries COMPREHENSIVE ORAL EVALUATION - NEW OR ESTABLISHED PATIENT Routine 05/16/2024 1:30 PM EST Encounter for dental examination Dental calculus Dental caries LIPID PANEL, STANDARD Routine 10/18/2023 10:42 AM EDT Type 2 diabetes mellitus without complication, without long-term current use of insulin ([facility]) RUQ pain Anemia, unspecified type BI MAMMOGRAM SCREENING TOMOSYNTHESIS BILATERAL Routine 07/19/2023 1:44 PM EST HEPATITIS C AB W/REFL TO HCV RNA, QN, PCR Routine 02/10/2023 9:12 AM EDT HIV ANTIBODY/ANTIGEN ([facility]) Routine 02/10/2023 9:12 AM EDT HM PAP/HPV Routine 12/11/2021 from Last 3 Months or Most Recently Relevant to Health Maintenance Results * (ABNORMAL) POCT HGB A1C (09/22/2024 10:53 AM EDT) Hemoglobin A1C 6.1(A) 4.0 - 6.0 % QC Media Lot # [id number] Lot# Expiration Date , Blood 09/22/2024 10:5 3 AM EDT Mala Burton DO POINT OF CARE TEST ENTER/GLORIA T ORDERABLES Final Result * POCT Glucose (09/22/2024 10:53 AM EDT) Glucose Blood, POC 136 60 - 200 mg/dL QC Media Lot # [id number] Lot# Expiration Date ,025 Blood Capillary blood specimen / Unknown 09/22/2024 10:53 AM EDT Mala Burton DO POINT OF CARE TEST ENTER/GLORIA T ORDERABLES Final Result * (ABNORMAL) Lipid Panel, Standard (10/18/2023 10:42 AM EDT) Triglycerides 183(H) <150 mg/dL [facility] Comment:Desirable Triglyceri de: less than 150 mg/dLBorderline High Triglyceride 150-199 mg/dLHigh Triglyceride: 200-499 mg/dLVery High Triglyceride: greater than or equal to 5OO mg/dL Cholesterol 142 <200 mg/dL [facility] Comment:Desirable Cholestero l: less than 200 mg/dLBorderline High Cholesterol: 200-239 mg/dLHigh Cholesterol: greater than 239 mg/dL LDL Cholesterol Calculated 58 <100 mg/dL [facility] Comment:Desirable LDL: less than 100 mg/dLNear Optimal/Above Optimal LDL: 110- 129 mg/dLBorderline High LDL: 130-159 mg/dLHigh LDL: 160-189 mg/dLVery High LDL: greater than or equal to 190 mg/dL HDL Cholesterol 48 >40 mg/dL [facility] Comment:Desirable HDL: great er than 40 mg/dL Note: This HDL assay may give artificially low results in patients with liver disease. Blood Venous blood specimen / Unknown 10/18/2023 10:42 AM EDT 10/18/2023 11:28 AM EDT us Mala Burton DO LAB BLOOD ORDERABLES Final R esult [facility] [address] [place] [address] [phone] * BI Mammogram Screening Tomosynthesis Bilateral (07/19/2023 1:44 PM EST) Anatomical Region Laterality Modality Breast Bilateral Mammography 07/19/2023 1:44 PM EST Narrative 08/05/2023 9:22 PM EST ? [facility] ? [address] ?[place] [address] ? Mammography Report ? Signed ? Patient: Shilpa Mock ?MR#: [id number] ?? [id number] ? : 1980 ?Acct:[id number] ? Age/Sex: 42 / F ?ADM Date: /12/24 ? Loc: HO.MAMMO ? Attending Reese Burton DO ? Ordering Physician: Mala Burton DO ?Results: 1N ?? egative ? Date of Service: 07/19/23 ?Follow Up: 1 Year From Orig ?? inal Mammogram ? Procedure(s): MM tomosynthesis screening BI ?? Accession Number(s): [id number] ? cc: Mala Burton DO ? EXAMINATION: ?? MM SCREENING DIGITAL BREAST TOMOSYNTHESIS, BILATERAL ? CLINICAL INFORMATION: ? Screening. Asymptomatic. ? COMPARISON: ?? Mammography: This study is compared with prior exams dating back to ?? 2021. ? TECHNIQUE: ?? Digital breast tomosynthesis is performed in both the craniocaudal and ?? mediolateral oblique views along with computer-aided detection (CAD). ?? Synthesized 2D images are generated from the tomosynthesis. ? FINDINGS: ?? There are scattered areas of fibroglandular density (ACR BI-RADS breast ?? composition Category b). ? There are no significant masses, abnormal calcifications, or other ?? abnormalities. ? MM/MM tomosynthesis screening BI ?? IMPRESSION: ?? No mammographic evidence of malignancy. ? ASSESSMENT: ? BI-RADS BI-RADS 1 - Negative ? RECOMMENDATION: ?? Routine annual mammography screening. ? 1 year F/U ? This examination should not preclude the clinical evaluation of a ?? suspicious palpable abnormality. ? This patient's information was entered into a reminder system with a ?? target due date for their next mammogram. ? Dictated By: ?Katalina Lee MD ? Signed By: ?<Electronically signed by Katalina Lee MD in OV> ? 08/05/232118 ? DD/ 43 ? TD/TT: ? Import Dispatcher: ? Procedure Note Mike, Byron - 08/05/2023 [place] [facility] [address] [place] [address] Mammography Report Signed Patient: Melvin Mock#: [id number] : 1980Acct:[id number] Age/Sex: 42 / FADM Date: 07/19/23 Loc: HO.MAMMO Attending Dr: Mala Burton DO Ordering Physician: Mala Burtonults: 1N egative Date of Service: 07/19/23Follow Up: 1 Year From Orig inal Mammogram Procedure(s): MM tomosynthesis screening BI Accession Number(s): [id number] cc: Mala Burton DO EXAMINATION: MM SCREENING DIGITAL BREAST TOMOSYNTHESIS, BILATERAL CLINICAL INFORMATION: Screening. Asymptomatic. COMPARISON: Mammography: This study is compared with prior exams dating back to 2021. TECHNIQUE: Digital breast tomosynthesis is performed in both the craniocaudal and mediolateral oblique views along with computer-aided detection (CAD). Synthesized 2D images are generated from the tomosynthesis. FINDINGS: There are scattered areas of fibroglandular density (ACR BI-RADS breast composition Category b). There are no significant masses, abnormal calcifications, or other abnormalities. MM/MM tomosynthesis screening BI IMPRESSION: No mammographic evidence of malignancy. ASSESSMENT: BI-RADS BI-RADS 1 - Negative RECOMMENDATION: Routine annual mammography screening. 1 year F/U This examination should not preclude the clinical evaluation of a suspicious palpable abnormality. This patient's information was entered into a reminder system with a target due date for their next mammogram. Dictated By: Katalina Lee MD Signed By: <Electronically signed by Katalina Lee MD in OV> 08/05/23 2119 DD/ 1344 TD/TT: Import Dispatcher: us Mala Burton DO IMG BI PROCEDURES Final Resu lt * HIV Ab/Ag (NO CUELLAR) (02/10/2023 9:12 AM EDT) HIV AB/AG Nonreactive Nonreactive [facility] Comment:HIV-1 p24 Ag and/or HIV-1/HIV-2 Ab not detected.A test result that is nonreactive does not exclude thepossibility of exposure to or infection with HIV-1 and/orHIV-2. Nonreactive results in this assay for individualswith prior exposure to HIV-1 and/or HIV-2 may be due toantigen and antibody levels that are below the limit ofdetection of this assay.The [employer] HIV Ag/Ab Combo assay result andsupplemental assay results should be interpreted inconjunction with the patient's clinical presentation,history and other laboratory results. If the results areinconsistent with clinical evidence, additional testing issuggested to confirm the result. 02/10/2023 9:12 AM EDT 02/10/2023 11:41 AM EDT Mala Burton DO LAB BLOOD ORDERABLES Final R esult Performing Organization Address [facility] Co de Phone Number [facility] [address] [place] [phone] * Hepatitis C Antibody with Reflex to HCV, RNA, Quantitative, Real-Time PCR (02/10/2023 9:12 AM EDT) Hepatitis C Antibody Nonreactive Nonreactive [facility] Comment:Antibodies to HCV no t detected; does not exclude early acuteHCV infection. 02/10/2023 9:12 AM EDT 02/10/2023 11:41 AM EDT Mala Burton DO LAB BLOOD ORDERABLES Final R esult Performing Organization Address [facility]/ZIP Co de Phone Number [facility] [address] [place] [phone] * Hm Pap Smear (12/11/2021) Pap Negative for intraephithelial lesion or malignancy Negative for intraephithelial lesion or malignancy, Other HPV Undetected us Historical Provider MD HEALTH MAINTENANCE Final Result from Last 3 Months or Most Recently Relevant to Health Maintenance Insurance [facility] [place] [facility] - [facility] FULL (MEDICAID) Care Teams Wind Energy Engineer Relationship Specialty Start Date End Date Mala Burton DO [address] [place] [phone] PCP - General Family Medicine 11/10/11
--- OUTSIDE RECORDS SUMMARY | 2024-09-22 12:30 | XMS_ITS | Encounter Summary ---
Author Organization [employer] Address [address] [place] [address] [address] [place] [address] Care Team Providers Care Associate Financial Analyst Name Role Phone Mala Burton DO Primary Care Provider + [phone] Encounter Details Date Type Department Care Team (Latest Contact Info) Description 12/02/2018 Abstract [facility] Dental, Provider, DDS Social History Tobacco Use Types Packs/Day Years Used Date Smoking Tobacco: Never Assessed Comments Unknown Sex and Gender Information Value Date Recorded Sex Assigned at Female 04/06/2022 10:20 AM EDT Legal Sex Female 10:20 AM EDT Gender Identity Female 04/06/2022 10:20 AM EDT Sexual Orientation Straight 04/06/2022 10 :20 AM EDT documented as of this encounter Plan of Treatment Upcoming Encounters Date Type Department Care Team (Late st Contact Info) Description 11/14/2024 2:00 PM EDT Office Visit [facility] [address] [place] [address] Edward Lucasa 01/16/2025 3:00 PM EDT Office Visit [facility] [address] [place] [address] Lea Lucas documented as of this encounter Visit Diagnoses Not on filedocumented in this encounter Care Teams Associate Financial Analyst Relationship Specialty Start Date End Date Mala Burton DO [address] [place] [address] PCP - General Family Medicine 11/10/11 documented as of this encounter
--- OUTSIDE RECORDS SUMMARY | 2024-09-22 12:30 | XMS_ITS | Encounter Summary ---
Author Organization [employer] Address [address] [facility] 7t [place] [address] Care Team Providers Care Supervisor Buffing And Pasting Name Role Phone Mala Burton DO Primary Care Provider + [phone] Encounter Details Date Type Department Care Team (Latest Contact Info) Description 09/22/2024 10:15 AM EDT Office Visit [facility] MEDICINE [address] [place], [place] [phone] Mala Burton DO [address] [place], [place] [phone] Type 2 diabetes mellitus without complication, without long-term current use of insulin ([facility]) (Primary Dx); Other hyperlipidemia; Fatty liver; Chronic gastroesophageal reflux disease; Anemia, unspecified type; Bone lesion; Paresthesia of both hands; Chest pain, unspecified type; Healthcare maintenance; Encounter for immunization Social History Tobacco Use Types Packs/Day Years Used Date Smoking Tobacco: Never Passive Smoke Exposure: Never Smokeless Tobacco: Never Alcohol Use Standard Drinks/Week Comments Never 0 [...] AM EDT documented as of this encounter Last Filed Vital Signs Vital Sign Reading [...] Mass Index 35.67 09/22/2024 10:23 AM EDT documented in this encounter Plan of Treatment Upcoming Encounters Date Type Department Care Team (Late st Contact Info) Description 11/14/2024 2:00 PM EDT Office Visit [facility] ADULT DENTAL [address] [place] [address] Lea Lucas 01/16/2025 3:00 PM EDT Office Visit [facility] ADULT DENTAL [address] [place] [address] Lea Lucas Scheduled Orders Name Type Priority Associated Diagnoses Orde r Schedule T4, Free Lab Routine Type 2 diabetes mellitus without complication, without long-term current use of insulin ([facility]) Other hyperlipidemia Fatty liver Chronic gastroesophageal reflux disease Anemia, unspecified type Bone lesion Healthcare maintenance Paresthesia of both hands Chest pain, unspecified type Expected: 09/22/2024 (Approximate), Expires: 09/22/2025 Vitamin D, 25-Hydroxy, Total, Immunoassay Lab Routine Type 2 diabetes mellitus without complication, without long-term current use of insulin (CMS/HCC) Other hyperlipidemia Fatty liver Chronic gastroesophageal reflux disease Anemia, unspecified type Bone lesion Healthcare maintenance Paresthesia of both hands Chest pain, unspecified type Expected: 09/22/2024 (Approximate), Expires: 09/22/2025 Lipid Panel, Standard Lab Routine Type 2 diabetes mellitus without complication, without long-term current use of insulin (CMS/HCC) Other hyperlipidemia Fatty liver Chronic gastroesophageal reflux disease Anemia, unspecified type Bone lesion Healthcare maintenance Paresthesia of both hands Chest pain, unspecified type Expected: 09/22/2024 (Approximate), Expires: 09/22/2025 TSH Lab Routine Type 2 diabetes mellitus without complication, without long-term current use of insulin (CMS/HCC) Other hyperlipidemia Fatty liver Chronic gastroesophageal reflux disease Anemia, unspecified type Bone lesion Healthcare maintenance Paresthesia of both hands Chest pain, unspecified type Expected: 09/22/2024 (Approximate), Expires: 09/22/2025 Hepatic Function Panel Lab Routine Type 2 diabetes mellitus without complication, without long-term current use of insulin (CMS/HCC) Other hyperlipidemia Fatty liver Chronic gastroesophageal reflux disease Anemia, unspecified type Bone lesion Healthcare maintenance Paresthesia of both hands Chest pain, unspecified type Expected: 09/22/2024 (Approximate), Expires: 09/22/2025 Hemoglobin A1c Lab Routine Type 2 diabetes mellitus without complication, without long-term current use of insulin (CMS/HCC) Other hyperlipidemia Fatty liver Chronic gastroesophageal reflux disease Anemia, unspecified type Bone lesion Healthcare maintenance Paresthesia of both hands Chest pain, unspecified type Expected: 09/22/2024 (Approximate), Expires: 09/22/2025 Basic Metabolic Panel Lab Routine Type 2 diabetes mellitus without complication, without long-term current use of insulin (CMS/HCC) Other hyperlipidemia Fatty liver Chronic gastroesophageal reflux disease Anemia, unspecified type Bone lesion Healthcare maintenance Paresthesia of both hands Chest pain, unspecified type Expected: 09/22/2024 (Approximate), Expires: 09/22/2025 CBC Lab Routine Type 2 diabetes mellitus without complication, without long-term current use of insulin (CMS/HCC) Other hyperlipidemia Fatty liver Chronic gastroesophageal reflux disease Anemia, unspecified type Bone lesion Healthcare maintenance Paresthesia of both hands Chest pain, unspecified type Expected: 09/22/2024, Expires: 09/22/2025 Albumin, Random Urine W/Creatinine Lab Routine Type 2 diabetes mellitus without complication, without long-term current use of insulin (CMS/HCC) Other hyperlipidemia Fatty liver Chronic gastroesophageal reflux disease Anemia, unspecified type Bone lesion Healthcare maintenance Paresthesia of both hands Chest pain, unspecified type Expected: 09/22/2024 (Approximate), Expires: 09/22/2025 Hepatitis B surface antigen, EIA Lab Routine Type 2 diabetes mellitus without complication, without long-term current use of insulin (CMS/HCC) Other hyperlipidemia Fatty liver Chronic gastroesophageal reflux disease Anemia, unspecified type Bone lesion Healthcare maintenance Paresthesia of both hands Chest pain, unspecified type Expected: 09/22/2024 (Approximate), Expires: 09/22/2025 Chlamydia/N. Gonorrhoeae RNA, TMA, Urogenitial Microbiology Routine Type 2 diabetes mellitus without complication, without long-term current use of insulin ([facility]/HCC) Other hyperlipidemia Fatty liver Chronic gastroesophageal reflux disease Anemia, unspecified type Bone lesion Healthcare maintenance Paresthesia of both hands Chest pain, unspecified type Ordered: 09/22/2024 HIV-1/2 Antigen and Antibodies, Fourth Generation, with Reflexes Lab Routine Type 2 diabetes mellitus without complication, without long-term current use of insulin (CMS/HCC) Other hyperlipidemia Fatty liver Chronic gastroesophageal reflux disease Anemia, unspecified type Bone lesion Healthcare maintenance Paresthesia of both hands Chest pain, unspecified type Expected: 09/22/2024 (Approximate), Expires: 09/22/2025 Hepatitis C Antibody with Reflex to HCV, RNA, Quantitative, Real-Time PCR Lab Routine Type 2 diabetes mellitus without complication, without long-term current use of insulin (CMS/HCC) Other hyperlipidemia Fatty liver Chronic gastroesophageal reflux disease Anemia, unspecified type Bone lesion Healthcare maintenance Paresthesia of both hands Chest pain, unspecified type Expected: 09/22/2024, Expires: 09/22/2025 RPR (Monitor) with Reflex to??Titer Lab Routine Type 2 diabetes mellitus without complication, without long-term current use of insulin (CMS/HCC) Other hyperlipidemia Fatty liver Chronic gastroesophageal reflux disease Anemia, unspecified type Bone lesion Healthcare maintenance Paresthesia of both hands Chest pain, unspecified type Expected: 09/22/2024, Expires: 09/22/2025 Hepatitis B Surface Antibody, Qualitative Lab Routine Type 2 diabetes mellitus without complication, without long-term current use of insulin (CMS/HCC) Other hyperlipidemia Fatty liver Chronic gastroesophageal reflux disease Anemia, unspecified type Bone lesion Healthcare maintenance Paresthesia of both hands Chest pain, unspecified type Expected: 09/22/2024 (Approximate), Expires: 09/22/2025 Alpha-Fetoprotein, Tumor Marker Lab Routine Type 2 diabetes mellitus without complication, without long-term current use of insulin (CMS/HCC) Other hyperlipidemia Fatty liver Chronic gastroesophageal reflux disease Anemia, unspecified type Bone lesion Healthcare maintenance Paresthesia of both hands Chest pain, unspecified type Expected: 09/22/2024 (Approximate), Expires: 09/22/2025 Vitamin B12 (Cobalamin) and Folate Panel, Serum Lab Routine Type 2 diabetes mellitus without complication, without long-term current use of insulin (CMS/HCC) Other hyperlipidemia Fatty liver Chronic gastroesophageal reflux disease Anemia, unspecified type Bone lesion Healthcare maintenance Paresthesia of both hands Chest pain, unspecified type Expected: 09/22/2024, Expires: 09/22/2025 Ferritin Lab Routine Type 2 diabetes mellitus without complication, without long-term current use of insulin (CMS/HCC) Other hyperlipidemia Fatty liver Chronic gastroesophageal reflux disease Anemia, unspecified type Bone lesion Healthcare maintenance Paresthesia of both hands Chest pain, unspecified type Expected: 09/22/2024, Expires: 09/22/2025 Iron And Total Iron Binding Capacity Lab Routine Type 2 diabetes mellitus without complication, without long-term current use of insulin (CMS/HCC) Other hyperlipidemia Fatty liver Chronic gastroesophageal reflux disease Anemia, unspecified type Bone lesion Healthcare maintenance Paresthesia of both hands Chest pain, unspecified type Expected: 09/22/2024, Expires: 09/22/2025 CBC Lab Routine Type 2 diabetes mellitus without complication, without long-term current use of insulin (CMS/HCC) Other hyperlipidemia Fatty liver Chronic gastroesophageal reflux disease Anemia, unspecified type Bone lesion Healthcare maintenance Paresthesia of both hands Chest pain, unspecified type Expected: 09/22/2024, Expires: 09/22/2025 documented as of this encounter Procedures Procedure Name Priority Date/Time Associated Diagnosis Comments POCT GLYCATED HEMOGLOBIN, TOTAL Routine 09/22/2024 10:53 AM EDT Type 2 diabetes mellitus without complication, without long-term current use of insulin ([facility]) POCT GLUCOSE Routine 09/22/2024 10:53 AM EDT Type 2 diabetes mellitus without complication, without long-term current use of insulin ([facility]) documented in this encounter Results * (ABNORMAL) POCT HGB A1C (09/22/2024 10:53 AM EDT) Hemoglobin A1C 6.1(A) 4.0 - 6.0 % QC Media Lot # [id number] Lot# Expiration Date Blood 09/22/2024 10:5 3 AM EDT Mala Burton DO POINT OF CARE TEST ENTER/GLORIA T ORDERABLES Final Result * POCT Glucose (09/22/2024 10:53 AM EDT) Glucose Blood, POC 136 60 - 200 mg/dL QC Media Lot # [id number] Lot# Expiration Date Blood Capillary blood specimen / Unknown 09/22/2024 10:53 AM EDT Mala Burton DO POINT OF CARE TEST ENTER/GLORIA T ORDERABLES Final Result documented in this encounter Visit Diagnoses Diagnosis Type 2 diabetes mellitus without complication, without long-term current use of insulin ([facility])- Primary Other hyperlipidemia Fatty liver Other chronic nonalcoholic liver disease Chronic gastroesophageal reflux disease Anemia, unspecified type Bone lesion Disorder of bone and cartilage, unspecified Paresthesia of both hands Chest pain, unspecified type Healthcare maintenance Encounter for immunization documented in this encounter Additional Health Concerns Assessment Noted Time PHQ-9 Depression Total Score: 0 09/23/19 25 10:24 AM EDT documented as of this encounter Care Teams Supervisor Buffing And Pasting Relationship Specialty Start Date End Date Mala Burton DO [address] [place] [address] PCP - General Family Medicine 11/10/11 documented as of this encounter
--- OUTSIDE RECORDS SUMMARY | 2024-09-22 12:30 | XMS_ITS | Encounter Summary ---
Author Organization [employer] Address [address] [facility] 7[address] [place] [address] Care Team Providers Care Keysmith Name Role Phone Mala Burton DO Primary Care Provider + [phone] Reason for Visit * Reason Onset Date Comments Nurse Triage 04/05/2023 Encounter Details Date Type Department Care Team ([facility] st Contact Info) Description 04/05/2023 Telephone [facility] MEDICINE [address] [place], [place] [phone] Mala Burton DO [address] [place], [place] [phone] Nurse Triage Social History Tobacco Use Types Packs/Day Years Used Date Smoking Tobacco: Never Passive Smoke Exposure: Never Smokeless Tobacco: Never Alcohol Use Standard Drinks/Week Comments Never 0 (1 standard drink = 0.6 oz pur e alcohol) Depression Answer Date Recorded Patient Health Questionnaire-9 Score 0 07/17/2022 Housing Stability Answer Date Recorded What is your housing situation today? I have stephan beckett 04/01/[address] you li ve. Do you have problems with any of the following? None of the above 04/01/2023 Food Insecurity Answer Date Recorded Within the past 12 months, y ou worried that your food would run out before you got money to buy more: Never True 04/01/2023 Within the past 12 months,th e food you bought just didn't last and you didn't have enough money to get more: Never True Transportation Answer Date Recorded In the past 12 months, has l ack of transportation kept you from medical appts, meetings, work or from getting things needed for daily living? No 04/01/2023 Utilities Answer Date Recorded In the past 12 months, has t he [employer], gas, oil or water [employer] threatened to shut off services in your home? No 04/01/2023 Depression Answer Date Recorded Patient Health Questionnaire-2 Score 0 07/17/2022 Comments Unknown Sex and Gender Information Value Date Recorded Sex Assigned at Female 04/06/2022 10:20 AM EDT Legal Sex Female 10:20 AM EDT Gender Identity Female 04/06/2022 10:20 AM EDT Sexual Orientation Straight 04/06/2022 10 :20 AM EDT documented as of this encounter Miscellaneous Notes * Telephone Encounter - Shayla Sandoval RN - 04/05/2023 12:50 PM EDT Triage call with [employer] Officer [place] [id number] Pt reports having chronic low back pain but, now Pt has shoulder and upper back pain which has juststarted in the last 2 weeks or so. Pt reports this pain is mainly on the left side and involves some numbness of the arms/hands. Tylenol has been effective to help some. Pt has not tried heat/ice andis advised to apply either one to see if there is any relief and Pt agrees to try. Pt denies any kind of activity which could have caused this pain, denies injury. Pt is advised to come to [facility] today to be seen by provider and Pt agrees. Protocol Used: Back Pain (Adult) Protocol-Based Disposition: See in Office or Video Visit Today Positive Triage Question: * Numbness in an arm or hand (i.e., loss of sensation) and upper back pain * All higher-acuity triage questions were negative Care Advice Discussed: * Reassurance and Education - Back Pain * Cold or Heat * Sleep * Activity * Pain Medicines * Pain Medicines - Extra Notes and Warnings * Reasons To Call Back - Fever occurs - Numbness or weakness occurs, or bowel/bladder problems - Pain begins to shoot into the leg - Pain persists over 2 weeks - Pain becomes worse - You become worse * Telephone Encounter - Vinod Alaniz - 04/05/2023 11:38 AM EDT Symptoms: Back Pain - Not From Injury, Breathing Trouble Outcome: Schedule an urgent appointment (within 1 hour) or talk to a nurse or provider soon Reason: Caller denied all higher acuity questions The caller accepted this outcome Patient speaks guamanian documented in this encounter Plan of Treatment Upcoming Encounters Date Type Department Care Team (Late st Contact Info) Description 11/14/2024 2:00 PM EDT Office Visit [facility] ADULT DENTAL [address] [place] [address] Lea Lucas 01/16/2025 3:00 PM EDT Office Visit [facility] ADULT DENTAL [address] [place] [address] Lea Lucas documented as of this encounter Visit Diagnoses Not on filedocumented in this encounter Additional Health Concerns Assessment Noted Time PHQ-9 Depression Total Score: 0 07/17/19 23 9:22 AM EST documented as of this encounter Care Teams Keysmith Relationship Specialty Start Date End Date Mala Burton DO [address] [place] [address] PCP - General Family Medicine 11/10/11 documented as of this encounter
--- OUTSIDE RECORDS SUMMARY | 2024-09-22 12:30 | XMS_ITS | Encounter Summary ---
Author Organization [employer] Address [address] [facility] 7[address] [place] [address] Care Team Providers Care Complaint Inspector Name Role Phone Mala Burton Primary Care Provider + [phone] Encounter Details Date Type Department Care Team (Latest Contact Info) Description 09/22/2024 Travel Social History Tobacco Use Types Packs/Day Years [...] EDT Office Visit [facility] ADULT DENTAL [address] [place] [address] Lea Lucas 01/16/2025 3:00 PM EDT Office Visit [facility]ULT D[facility] [address] [place] [address] Lea Lucas documented as of this encounter Visit Diagnoses Not on filedocumented in this encounter Additional Health Concerns Assessment Noted Time PHQ-9 Depression Total Score: 0 09/23/19 25 10:24 AM EDT documented as of this encounter Care Teams Complaint Inspector Relationship Specialty Start Date End Date Mala Burton DO [address] [place] [address] PCP - General Family Medicine 11/10/11 documented as of this encounter
--- OUTSIDE RECORDS SUMMARY | 2024-09-22 12:30 | XMS_ITS | Encounter Summary ---
Author Organization [employer] Address [address] [facility] [address] [place] [address] Care Team Providers Care Heating Operators Engineer Name Role Phone Mala Burton DO Primary Care Provider + [phone] Reason for Visit * Reason Onset Date Comments Nurse Triage 09/29/2023 Encounter Details Date Type Department Care Team ([facility] st Contact Info) Description 09/29/2023 Telephone [facility] MEDICINE [address] [place], [place] [phone] Mala Burton DO [address] [place], [place] [phone] Nurse Triage Social History Tobacco Use Types [...] the past 12 months, has t he [employer], gas, oil or water [email or web address] threatened to shut off services in your [...] Telephone Encounter - Shayla Sandoval RN - 09/29/2023 3:44 PM EDT Triage call with [employer] Power Screwdriver Operator [place] [id number] Pt reports continued right upper quadrant abdominal pain. Pt was seen in [facility] 09/27/23 impression of microcytic anemia and gastritis. Pt reports pain comes and goes especially after eating. Prilosec, tums are not effective for this pain. Pt is given apt for ED follow up with PCP 10/04/23 @ 1200pm. Home care reviewed , Pt is taking iron supplement and is advised to increase fluids 6-8 glasses daily, change diet to more fresh fruits/vegetables and high fiber foods. Try to decrease the amount of fatty, greasy, spicy foods if possible. Pt agrees with disposition and home care . Insurance is verified as active prior to booking. Protocol Used: Abdominal Pain - Upper (Adult) Protocol-Based Disposition: See in Office or Video Visit within 2 Weeks Positive Triage Question: * Abdominal pain is a chronic symptom (recurrent or ongoing AND lasting > 4 weeks) * All higher-acuity triage questions were negative Care Advice Discussed: * Reassurance and Education - Stomach Pain * Antacid Medicine * Drink Clear Fluids * Diet * Food Recommendations to Reduce Reflux * Reasons To Call Back - Severe pain present over 1 hour - Constant pain present over 2 hours - Moderate pains come and go for more than 24 hours - Mild pains come and go for more than 72 hours - You become worse * Telephone Encounter - Constance Ames - 09/29/2023 2:50 PM EDT Symptom: Abdominal Pain - Female - Not Outcome: Schedule an urgent appointment (within 4 hours) or talk to a nurse or provider soon Reason: Started within the past 3 days, pt was seen at [facility] on 09/26 for abdominal pain. Pt is symptomatic The caller accepted this outcome Please contact pt at [phone] (ceramic sprayer needed) documented in this encounter Plan of Treatment Upcoming Encounters Date Type Department Care Team (Late st Contact Info) Description 11/14/2024 2:00 PM EDT Office Visit [facility] ADULT DENTAL [address] [place] [address] Lea Lucas 01/16/2025 3:00 PM EDT Office Visit [facility] ADULT DENTAL [address] [place] [address] Lea Lucas documented as of this encounter Visit Diagnoses Not on filedocumented in this encounter Additional Health Concerns Assessment Noted Time PHQ-9 Depression Total Score: 0 07/17/19 23 9:22 AM EST documented as of this encounter Care Teams Heating Operators Engineer Relationship Specialty Start Date End Date Mala Burton DO [address] [place] [address] PCP - General Family Medicine 11/10/11 documented as of this encounter
[2024-09-22 13:26] LABS: Hemoglobin 10.4 g/dl (12.0-16.0); Mean Corpuscular HGB Conc 30.6 g/dl (31.0-35.0); Mean Corpuscular Hemoglobin 21.3 pg (27.0-33.0); Mean Corpuscular Volume 69.7 fL (80.0-98.0); Mean Platelet Volume 10.4 fL (9.4-12.3); Platelet Count 395 X10*3/uL (160-400); Red Blood Count 4.88 X10*6/uL (4.20-5.50); Red Cell Distribution Width 17.7 % (11.0-16.0); White Blood Count 11.1 X10*3/uL (4.8-10.8)
[2024-09-22 13:40] LABS: Estimated Average Glucose 131 mg/dL; Hemoglobin A1C 124.7317 umol/L; Hemoglobin A1c % 6.2 % (<6.0); Total Hemoglobin (HGBA1C) 2803.8793 umol/L
[2024-09-22 14:03] LABS: Alanine Aminotransferase 25 U/L (0-31); Albumin Level 3.9 g/dL (3.5-5.0); Anion Gap 11 (12-20); Aspartate Amino Transferase 32 U/L (5-31); Bilirubin Direct 0.2 mg/dL (0.0-0.5); Bilirubin Total 0.7 mg/dL (0.0-1.0); Blood Urea Nitrogen 9 mg/dL (9-16); Carbon Dioxide 25 mmol/L (22-29); Chloride 105 mmol/L (96-108); Cholesterol 165 mg/dL (<200); Estimated Glomerular Filt Rate > 60; Glucose Random 120 mg/dL (60-115); HDL Cholesterol 41 mg/dL (>40); Iron 36 mcg/dL (30-160); LDL Cholesterol Calculated 88 mg/dL (<100); Percent Iron Saturation 9 % (15-50); Sodium 137 mmol/L (135-145); Total Iron Binding Capacity 411 mcg/dL (228-428); Total Protein 7.5 g/dL (6.5-8.0); Triglycerides 180 mg/dL (<150); Unsaturated Iron Binding 375 ug/dL
[2024-09-22 14:11] LABS: Creatinine Urine 226.32 mg/dL; Microalbum/Creatinine Ratio Ur 2.6 ug/mg cr (<30)
[2024-09-22 14:17] LABS: Folate 8.3 ng/mL (> or = 4.0); Vitamin B12 444 pg/mL (200-900)
[2024-09-22 14:19] LABS: Ferritin 10 ng/mL (10-250); Free T4 (Free Thyroxine) 1.01 ng/dL (0.71-1.85); Vitamin D 25-OH Total 18.2 ng/mL (>30)
[2024-09-22 19:58] LABS: Alkaline Phosphatase 113 U/L (39-117)
[2024-09-23 02:37] LABS: CT PCR NOT DETECTED (Not Detect.); NG PCR NOT DETECTED (Not Detect.)
[2024-09-23 08:09] LABS: HBS Num1 119.14 mIU/mL (0-7.99); HBsAGNum1 0.24 S/CO (0.00-0.99); HIV AB/AG Nonreactive (Nonreactive); HIV Num 1 0.06 S/CO (0.00-0.99); Hepatitis B Surface Antigen Negative (Negative); ~HepC Num1 0.16 S/CO (0.00-0.79); ~Hepatitis B Surface Antibody REACTIVE (Nonreactive); ~Hepatitis C Antibody Nonreactive (Nonreactive)
[2024-09-24 18:48] LABS: RPR Rapid Plasma Reagin NON-REACTIVE (NON-REACTIVE)
[2024-09-26 13:19] LABS: Alpha Fetoprotein 2.1 ng/mL
== END 2024-09-22 11:24 | disposition home or self-care (01) ==
LOC: HO.HHCL 11:23
PROVIDERS: Visit Provider Family Medicine
DX: Z00.00 Encounter for general adult medical examination without abnormal findings (principal); R20.2 Paresthesia of skin; R07.9 Chest pain, unspecified; M89.9 Disorder of bone, unspecified; D64.9 Anemia, unspecified; K21.9 Gastro-esophageal reflux disease without esophagitis; K76.0 Fatty (change of) liver, not elsewhere classified; E78.49 Other hyperlipidemia; E11.9 Type 2 diabetes mellitus without complications
CPT/HCPCS: 80048; 80061; 80076; 82043; 82105; 82306; 82570; 82607; 82728; 82746; 83036; 83540; 84439; 84443; 85027; 86592; 86706; 86803; 87340; 87389; 87491; 87591

== ENCOUNTER 2024-10-05 11:04 | Outpatient (REF) | payer MEDICAID, OTHER, SELFPAY ==
--- OUTSIDE RECORDS SUMMARY | 2024-10-05 12:53 | XMS_ITS | Encounter Summary ---
Author Organization [employer] Address [address] [facility] 7t [place] [address] Care Team Providers Care Shotgun Shell Reprinting Unit Operator Name Role Phone Mala Burton DO Primary Care Provider + [phone] Reason for Visit * Reason Onset Date Comments Nurse Triage 04/05/2023 Encounter Details Date Type Department Care Team ([facility] st Contact Info) Description 04/05/2023 Telephone [facility] MEDICINE [address] [place], [place] [phone] Mala Burton DO [address] [place], [place] [phone] Nurse Triage Social History Tobacco Use Types [...] the past 12 months, has t he [employer], gas, oil or water [email or web address] threatened to shut off services in your [...] 04/05/2023 12:50 PM EDT Triage call with [employer] Labor Relations Worker ID [id number] Pt reports having chronic low back pain [...] injury. Pt is advised to come to [facility] today to be seen by provider and [...] The caller accepted this outcome Patient speaks turkish documented in this encounter Plan of Treatment Upcoming Encounters Date Type Department Care Team (Late st Contact Info) Description 11/14/2024 2:00 PM EDT Office Visit [facility] ADULT DENTAL [address] [place] [address] Lea Lucas 01/16/2025 3:00 PM EDT Office Visit [facility] ADULT DENTAL [address] [place] [address] Lea Lucas documented as of this encounter Visit Diagnoses Not on filedocumented in this encounter Additional Health Concerns Assessment Noted Time PHQ-9 Depression Total Score: 0 07/17/19 23 9:22 AM EST documented as of this encounter Care Teams Shotgun Shell Reprinting Unit Operator Relationship Specialty Start Date End Date Mala Burton DO [address] [place] [address] PCP - General Family Medicine 11/10/11 documented as of this encounter
--- OUTSIDE RECORDS SUMMARY | 2024-10-05 12:53 | XMS_ITS | Encounter Summary ---
Author Organization [employer] Address [address] [place] [address] 7[address] [place] [address] Care Team Providers Care Preprint Analyst Name Role Phone Mala Burton DO Primary Care Provider + [phone] Encounter Details Date Type Department Care Team (Latest Contact Info) Description 12/02/2018 Abstract [facility] CON[facility] Dental, Provider, DDS Social History [...] Description 11/14/2024 2:00 PM EDT Office Visit [facility] ADULT DENTAL [address] [place] [address] Edward Lucasa 01/16/2025 3:00 PM EDT Office Visit [facility] ADULT DENTAL [address] [place] [address] Lea Lucas documented as of this encounter Visit Diagnoses Not on filedocumented in this encounter Care Teams Preprint Analyst Relationship Specialty Start Date End Date Mala Burton DO [address] [place] [address] PCP - General Family Medicine 11/10/11 documented as of this encounter
--- OUTSIDE RECORDS SUMMARY | 2024-10-05 12:53 | XMS_ITS | Encounter Summary ---
Author Organization [employer] Address [address] [facility] [address] [place] [address] Care Team Providers Care Cuff Stitcher Name Role Phone Mala Burton DO Primary Care Provider + [phone] Reason for Visit * Reason Onset Date Comments Durable Medical Equipment 09/22/2024 DME Re quest: Bilateral Wrist Braces Encounter Details Date Type Department Care Team ([facility] st Contact Info) Description 09/22/2024 Telephone [facility] [address] [place], [place] [phone] Mala Burton DO [address] [place], [place] [phone] Durable Medical Equipment (DME Request: Bilateral Wrist Braces) Social History Tobacco Use Types Packs/Day Years [...] encounter Miscellaneous Notes * Telephone Encounter - Isis Velez - 10/04/2024 10:29 AM EDT DME for Brace signed and faxed to Nahomi . Confirmation received and sent to scan. If patient calls to check status on above, please advise them to contact Nahomi at [phone]. * Telephone Encounter - Isis Velez - 09/27/2024 4:25 PM EDT DME RX for Bilateral Wrist braces generated and placed on providers desk for signature. * Telephone Encounter - Mala Burton DO - 09/22/2024 1:29 PM EDT Please initiate rx for b/l wrist splints. Thank you. documented in this encounter Plan of Treatment Upcoming Encounters Date Type Department Care Team (Late st Contact Info) Description 11/14/2024 2:00 PM EDT Office Visit [facility] [address] [place] [address] Lea Lucas 01/16/2025 3:00 PM EDT Office Visit [facility] [address] [place] [address] Lea Lucas documented as of this encounter Visit Diagnoses Not on filedocumented in this encounter Additional Health Concerns Assessment Noted Time PHQ-9 Depression Total Score: 0 09/23/19 25 10:24 AM EDT documented as of this encounter Care Teams Cuff Stitcher Relationship Specialty Start Date End Date Mala Burton DO [address] [place] [address] PCP - General Family Medicine 11/10/11 documented as of this encounter
--- OUTSIDE RECORDS SUMMARY | 2024-10-05 12:53 | XMS_ITS | Encounter Summary ---
Author Organization [employer] Address [address] [facility] [address] [place] [address] Care Team Providers Care Coating Machine Helper Name Role Phone Mala Burton DO Primary Care Provider + [phone] Reason for Visit * Reason Onset Date Comments Nurse Triage 09/29/2023 Encounter Details Date Type Department Care Team ([facility] st Contact Info) Description 09/29/2023 Telephone [facility] [address] [place], [place] [phone] Mala Burton DO [address] [place], [place] [phone] Nurse Triage Social History Tobacco Use Types [...] the past 12 months, has t he [id number], gas, oil or water [employer] threatened to shut off services in your [...] 09/29/2023 3:44 PM EDT Triage call with [employer] [place] Driver ID [id number] Pt reports continued right upper quadrant abdominal pain. Pt was seen in [facility] ED 09/27/23 impression of microcytic anemia and [...] past 3 days, pt was seen at [facility] on 09/26 for abdominal pain. Pt is symptomatic The caller accepted this outcome Please contact pt at [phone] (hourly sign language interpreter needed) documented in this encounter Plan of Treatment Upcoming Encounters Date Type Department Care Team (Late st Contact Info) Description 11/14/2024 2:00 PM EDT Office Visit [facility] [address] [place] [address] Lea Lucas 01/16/2025 3:00 PM EDT Office Visit [facility] [address] [place] [address] Lea Lucas documented as of this encounter Visit Diagnoses Not on filedocumented in this encounter Additional Health Concerns Assessment Noted Time PHQ-9 Depression Total Score: 0 07/17/19 23 9:22 AM EST documented as of this encounter Care Teams Coating Machine Helper Relationship Specialty Start Date End Date aMla Burton DO [address] [place] [address] PCP - General Family Medicine 11/10/11 documented as of this encounter
--- OUTSIDE RECORDS SUMMARY | 2024-10-05 12:53 | XMS_ITS | Clinical Summary ---
Author Organization [employer] Address [address] [facility] [address] [place] [address] Care Team Providers Care Clinical Informatics Spec Name Role Phone Mala Burton DO Primary Care Provider [phone] Allergies No known active allergies Medications Blood [...] TWICE DAILY 100 each 5 4 Active acetaminophen (Tylenol 8 Hour) 650 MG ER tablet Take 1 tablet (650 mg) by mouth every 8 (eight) hours if needed for mild pain. Do not crush, chew, or split. 40 tablet 1 5 10/23/19 25 Active naproxen (Naprosyn) 500 MG tabletIndicatio ns:Bone lesion Take 1 tablet (500 mg) by mouth if needed in the morning and at bedtime for mild pain. 40 tablet 1 5 09/23/19 26 Active Active Problems Problem Noted Date Diagnosed [...] Description 09/22/2024 10:15 AM EDT Office Visit [address] [phone] Mala Burton DO Type 2 diabetes mellitus without complication, without long-term current use of insulin ([facility]) (Primary Dx); Other hyperlipidemia; Fatty liver; Chronic gastroesophageal reflux disease; Anemia, unspecified type; Bone lesion; Paresthesia of both hands; Chest pain, unspecified type; Healthcare maintenance; Encounter for immunization; Encounter for screening mammogram for malignant neoplasm of breast 09/22/[address] [phone] Mala Burton DO Durable Medical Equipment (DME Request: Bilateral Wrist Braces) 09/22/2024 Travel 09/13/2024 Patient Outreach [address] [phone] Mala Burton DO Pre-visit Planning ((Unable to reach for PVP screening, LVM)) 08/14/2024 10:30 AM EDT Office Visit [facility] [address] [place] [phone] Amada Chatman DDS Encounter for dental examination (Primary Dx) 08/02/2024 10:30 AM EST Office Visit [facility] [address] [place] [address] Amada Chatman DDS Dental caries (Primary Dx) 07/27/[address] [address] Mala Burton DO Recall Appt. 07/27/2024 Travel 07/11/2024 2:30 PM EST Office Visit [facility] [address] [place] [phone] Lea Lucas Dental plaque (Primary Dx); Dental calculus from Last 3 Months Immunizations Name Administration Dates Next Due Hep B, Adolescent or Pediatric 03/17/2011 Hep B, adult 02/18/2024,02/12/2011 Influenza injectable quadrivalent preservative f ree 07/07/2023,04/27/2019 Influenza, IIV3, injectable 02/27/2014, 0 Influenza, Split (incl. purified surface antigen ) 03/27/2013 Influenza, seasonal, injectable, preservative fr ee 02/18/2024 Moderna Covid-19 Vaccine 12+ 10/11/2020,09/14/19 21 Moderna Covid-19 Vaccine 6+ Bivalent 07/17/2022 Pfizer [...] is your housing situation today? I have stephansj beckett 09/22/[address] you [...] Description 11/14/2024 2:00 PM EDT Office Visit [facility] [address] [place] [address] Lea Lucas 01/16/2025 3:00 PM EDT Office Visit [facility] [address] [place] [address] Lea Lucas Health Maintenance Due Date Last Done Comments Diabetes: Foot Exam 09/09/1991 Family Planning (PISQ) 1996 Hepatitis A Vaccines (1 of 2 - Risk 2-dose series) 2000 Hepatitis B Vaccines (3 of 3 - 19+ 3-dose series) 04/14/2024 02/18/2024, 03/17/2011, 02/12/2011 Mammogram 07/19/2024 07/19/2023, 01/2022, 01/27/2018 Dental Oral Exam 11/15/2024 05/16/2024, , 07/07/2016, Additional history exists Dental Prophylaxis 01/09/2025 07/11/2024, 0 12/02/2018, 02/15/2017, Additional history exists Diabetes: Hemoglobin A1C 03/24/2025 025, 09/22/2024, 02/18/2024, Additional history exists Dental X-Ray: Bitewings 05/17/2025 05/16/20 24, 01/08/2020, 12/02/2018, Additional history exists Alcohol/Substance Use Screening 09/22/2025 09/22/2024 Depression Screening 09/22/2025 09/22/2024, 09/23/19 25 Diabetes: Urine Protein Screening 09/22/2025 09/22/2024 Lipid Panel 09/22/2025 09/22/2024, 10/05, 02/10/2023, Additional history exists SDOH Screening 09/22/2025 09/22/2024 Tobacco Screening 09/22/2025 09/22/2024 Eye Exam 11/17/2025 11/18/2023, 11/05, 11/18/2023, Additional history exists Cervical Cancer Screening 12/11/2026 HPV/Cotest 12/11/2026 12/11/2021, 070 12/2021, 12/11/2021, Additional history exists Pap Smear 12/11/2026 12/11/2021 Dental X-Ray: Full Mouth 05/17/2027 05/16/2024, 12/05 DTaP/Tdap/Td Vaccines (3 - Td or Tdap) 10/02/2029 10/03/2019, 09/11/2013 Zoster Vaccines (1 of 2) 09/09/2031 RSV Patients and Patients Aged 60 years or older (1 - 1-dose 75+ series) 2056 Pneumococcal Vaccine: Pediatrics (0 to 5 Years) and At-Risk Patients (6 to 49) Years) Completed 02/17/2023 Influenza Vaccine Completed 02/18/2024, , 04/27/2019, Additional history exists COVID-19 Vaccine Completed 09/22/2024, 03/2023, 10/11/2020, Additional history exists HIV Screening Completed 09/22/2024, 09/0 11/2022, 05/20/2021, Additional history exists Hepatitis C Screening Completed 09/22/2024 , 02/10/2023, 05/20/2021, Additional history exists HIB Vaccines Aged Out [...] Procedure Name Priority Date/Time Associated Diagnosis Comments IRON AND TOTAL IRON BINDING CAPACITY Routine 09/22/2024 11:28 AM EDT Type 2 diabetes mellitus without complication, without long-term current use of insulin (CMS/HCC) Other hyperlipidemia Fatty liver Chronic gastroesophageal reflux disease Anemia, unspecified type Bone lesion Healthcare maintenance Paresthesia of both hands Chest pain, unspecified type FERRITIN Routine 09/22/2024 11:28 AM EDT Type 2 diabetes mellitus without complication, without long-term current use of insulin (CMS/HCC) Other hyperlipidemia Fatty liver Chronic gastroesophageal reflux disease Anemia, unspecified type Bone lesion Healthcare maintenance Paresthesia of both hands Chest pain, unspecified type VITAMIN B12/FOLATE, SERUM PANEL Routine 09/22/2024 11:28 AM EDT Type 2 diabetes mellitus without complication, without long-term current use of insulin (CMS/HCC) Other hyperlipidemia Fatty liver Chronic gastroesophageal reflux disease Anemia, unspecified type Bone lesion Healthcare maintenance Paresthesia of both hands Chest pain, unspecified type ALPHA FETOPROTEIN, TUMOR MARKER Routine 09/22/2024 11:28 AM EDT Type 2 diabetes mellitus without complication, without long-term current use of insulin (CMS/HCC) Other hyperlipidemia Fatty liver Chronic gastroesophageal reflux disease Anemia, unspecified type Bone lesion Healthcare maintenance Paresthesia of both hands Chest pain, unspecified type HEPATITIS B SURFACE ANTIBODY, QUALITATIVE Routine 09/22/2024 11:28 AM EDT Type 2 diabetes mellitus without complication, without long-term current use of insulin (CMS/HCC) Other hyperlipidemia Fatty liver Chronic gastroesophageal reflux disease Anemia, unspecified type Bone lesion Healthcare maintenance Paresthesia of both hands Chest pain, unspecified type RPR (MONITOR) W/REFL TITER Routine 09/22/2024 11:28 AM EDT Type 2 diabetes mellitus without complication, without long-term current use of insulin (CMS/HCC) Other hyperlipidemia Fatty liver Chronic gastroesophageal reflux disease Anemia, unspecified type Bone lesion Healthcare maintenance Paresthesia of both hands Chest pain, unspecified type HEPATITIS C AB W/REFL TO HCV RNA, QN, PCR Routine 09/22/2024 11:28 AM EDT Type 2 diabetes mellitus without complication, without long-term current use of insulin (CMS/HCC) Other hyperlipidemia Fatty liver Chronic gastroesophageal reflux disease Anemia, unspecified type Bone lesion Healthcare maintenance Paresthesia of both hands Chest pain, unspecified type HIV 1/2 ANTIGEN/ANTIBODY, FOURTH GENERATION W/RFL Routine 09/22/2024 11:28 AM EDT Type 2 diabetes mellitus without complication, without long-term current use of insulin (CMS/HCC) Other hyperlipidemia Fatty liver Chronic gastroesophageal reflux disease Anemia, unspecified type Bone lesion Healthcare maintenance Paresthesia of both hands Chest pain, unspecified type HEPATITIS B SURFACE ANTIGEN, EIA Routine 09/22/2024 11:28 AM EDT Type 2 diabetes mellitus without complication, without long-term current use of insulin (CMS/HCC) Other hyperlipidemia Fatty liver Chronic gastroesophageal reflux disease Anemia, unspecified type Bone lesion Healthcare maintenance Paresthesia of both hands Chest pain, unspecified type ALBUMIN, RANDOM URINE W/CREATININE Routine 09/22/2024 11:28 AM EDT Type 2 diabetes mellitus without complication, without long-term current use of insulin (CMS/HCC) Other hyperlipidemia Fatty liver Chronic gastroesophageal reflux disease Anemia, unspecified type Bone lesion Healthcare maintenance Paresthesia of both hands Chest pain, unspecified type CBC Routine 09/22/2024 11:28 AM EDT Type 2 diabetes mellitus without complication, without long-term current use of insulin (CMS/HCC) Other hyperlipidemia Fatty liver Chronic gastroesophageal reflux disease Anemia, unspecified type Bone lesion Healthcare maintenance Paresthesia of both hands Chest pain, unspecified type BASIC METABOLIC PANEL Routine 09/22/2024 11:28 AM EDT Type 2 diabetes mellitus without complication, without long-term current use of insulin (CMS/HCC) Other hyperlipidemia Fatty liver Chronic gastroesophageal reflux disease Anemia, unspecified type Bone lesion Healthcare maintenance Paresthesia of both hands Chest pain, unspecified type HEMOGLOBIN A1C Routine 09/22/2024 11:28 AM EDT Type 2 diabetes mellitus without complication, without long-term current use of insulin (CMS/HCC) Other hyperlipidemia Fatty liver Chronic gastroesophageal reflux disease Anemia, unspecified type Bone lesion Healthcare maintenance Paresthesia of both hands Chest pain, unspecified type HEPATIC FUNCTION PANEL Routine 09/22/2024 11:28 AM EDT Type 2 diabetes mellitus without complication, without long-term current use of insulin (CMS/HCC) Other hyperlipidemia Fatty liver Chronic gastroesophageal reflux disease Anemia, unspecified type Bone lesion Healthcare maintenance Paresthesia of both hands Chest pain, unspecified type TSH Routine 09/22/2024 11:28 AM EDT Type 2 diabetes mellitus without complication, without long-term current use of insulin (CMS/HCC) Other hyperlipidemia Fatty liver Chronic gastroesophageal reflux disease Anemia, unspecified type Bone lesion Healthcare maintenance Paresthesia of both hands Chest pain, unspecified type LIPID PANEL, STANDARD Routine 09/22/2024 11:28 AM EDT Type 2 diabetes mellitus without complication, without long-term current use of insulin (CMS/HCC) Other hyperlipidemia Fatty liver Chronic gastroesophageal reflux disease Anemia, unspecified type Bone lesion Healthcare maintenance Paresthesia of both hands Chest pain, unspecified type VITAMIN D,25-OH,TOTAL,IA Routine 09/22/2024 11:28 AM EDT Type 2 diabetes mellitus without complication, without long-term current use of insulin (CMS/HCC) Other hyperlipidemia Fatty liver Chronic gastroesophageal reflux disease Anemia, unspecified type Bone lesion Healthcare maintenance Paresthesia of both hands Chest pain, unspecified type T4, FREE Routine 09/22/2024 11:28 AM EDT Type 2 diabetes mellitus without complication, without long-term current use of insulin ([facility]) Other hyperlipidemia Fatty liver Chronic gastroesophageal reflux disease Anemia, unspecified type Bone lesion Healthcare maintenance Paresthesia of both hands Chest pain, unspecified type CHLAMYDIA/N. GONORRHOEAE RNA, TMA, UROGENITAL Routine 09/22/2024 11:28 AM EDT Type 2 diabetes mellitus without complication, without long-term current use of insulin ([facility]) Other hyperlipidemia Fatty liver Chronic gastroesophageal reflux disease Anemia, unspecified type Bone lesion Healthcare maintenance Paresthesia of both hands Chest pain, unspecified type POCT GLYCATED HEMOGLOBIN, TOTAL Routine 09/22/2024 10:53 AM EDT Type 2 diabetes mellitus without complication, without long-term current use of insulin ([facility]) POCT GLUCOSE Routine 09/22/2024 10:53 AM EDT Type 2 diabetes mellitus without complication, without long-term current use of insulin ([facility]) NO CHARGE PROCEDURE Routine 08/14/2024 1 0:30 [...] :30 PM EST Dental plaque Dental calculus INTRAORAL - COMPLETE SERIES OF RADIOGRAPHIC IMAGES Routine 05/16/2024 1:30 PM EST Encounter for dental examination Dental calculus Dental caries COMPREHENSIVE ORAL EVALUATION - NEW OR ESTABLISHED PATIENT Routine 05/16/2024 1:30 PM EST Encounter for dental examination Dental calculus Dental caries BI MAMMOGRAM SCREENING TOMOSYNTHESIS BILATERAL Routine 07/19/2023 1:44 PM EST HM PAP/HPV Routine 12/11/2021 from Last 3 Months or Most Recently Relevant to Health Maintenance Results * (ABNORMAL) Vitamin D, 25-Hydroxy, Total, Immunoassay (09/22/2024 11:28 AM EDT) Vitamin D 25-OH Total 18.2(L) >30 ng/mL [facility] Comment: Health Based Reference Values*< 20 ??ng/mL ??[id number] ng/mL ??Insufficient> 30 ??ng/mL ??Sufficient*Simeon PONCE. N Engl J Med. 2007;357:266-280There is no well-established upper level of normal vitamin Dlevels. Some laboratories use 50 ng/mL as an upper limit ofnormal. However, toxicity is patient-dependent and may occurat any level. Careful correlation with the patient'spresentation is necessary and, if there is concern forvitamin D toxicity, treatment should be consideredirrespective of the serum level.Care must be taken in interpreting Vitamin D results fromdifferent laboratories and methodologies. ??Published datademonstrated that results from patients undergoinghemodialysis may show a negative bias when tested withvarious automated 25-OH vitamin D assays when compared toLC- MS/MS.When testing samples from patients whose predominant form ofVitamin D is Vitamin D2, such as patients receiving VitaminD2 supplementation, results that are subtherapeutic shouldbe confirmed with another method such as LC-MS/MS. Blood Venous blood specimen / Unknown 09/22/2024 11:28 AM EDT 09/22/2024 1:03 PM EDT Mala Burton DO LAB BLOOD ORDERABLES Final R esult [facility] [address] [place] [phone] * Vitamin B12 (Cobalamin) and Folate Panel, Serum (09/22/2024 11:28 AM EDT) Vitamin B12 444 200 - 900 pg/mL [facility] Comment:NORMAL 200-900 PG/ML INDETERMINATE 160-199 PG/ML DEFICIENT < 160 PG/ML Folate 8.3 > or = 4.0 ng/mL [facility] Comment:Reference Values:> o r = 4.0 ng/mL< 4.0 ng/mL suggests folate deficiency Methotrexate, aminopterin and folinic acid(leucovorin) are chemotherapeutic agents whose molecularstructures are similar to folate; therefore, the Architectfolate assay cannot be used for patients using these drugs. Blood 09/22/2024 11:2 8 AM EDT 09/22/2024 1:03 PM EDT Mala Burton DO LAB BLOOD ORDERABLES Final R esult Performing Organization Address [facility] Co de Phone Number [facility] [address] [place] [phone] * Albumin, Random Urine W/Creatinine (09/22/2024 11:28 AM EDT) Creatinine, Urine 226.32 mg/dL [facility] Microalbumin Urine 6.0 mg/L [facility] Microalbum Creatinine Ratio Ur 2.6 <30 ug/mg cr [facility] Comment:Albumin/Creatinine R atio Reference Ranges: Normal: < 30 ug/mg creatinine Microalbuminuria: 30 - 300 ug/mg creatinineClinical Albuminuria: > 300 ug/mg creatinine Urine (Urine, Random) 09/22/2024 11:28 AM EDT 09/22/2024 1:00 PM EDT Mala Burton DO LAB URINE ORDERABLES Final R esult Performing Organization Address [facility] Co de Phone Number [facility] [address] [place] [phone] * Hepatitis C Antibody with Reflex to HCV, RNA, Quantitative, Real-Time PCR (09/22/2024 11:28 AM EDT) Hepatitis C Antibody Nonreactive Nonreactive [facility] Comment:Antibodies to HCV no t detected; does not exclude early acuteHCV infection. Blood Venous blood specimen / Unknown 09/22/2024 11:28 AM EDT 09/22/2024 1:03 PM EDT Mala Burton LAB BLOOD ORDERABLES Final R esult Performing Organization Address [facility] Co de Phone Number [facility] [address] [place] [phone] * (ABNORMAL) Iron And Total Iron Binding Capacity (09/22/2024 11:28 AM EDT) Pathologist [facility] Iron 36 30 - 160 mcg/dL [facility] Total Iron Binding Capacity 411 228 - 428 mcg/dL [facility] Percent Iron Saturation 9(L) 15 - 50 % [facility] Unsaturated Iron Binding 375 ug/dL [facility] Blood Venous blood specimen / Unknown 09/22/2024 11:28 AM EDT 09/22/2024 1:03 PM EDT Mala Burton LAB BLOOD ORDERABLES Final R esult Performing Organization Address [facility] de Phone Number [facility] [address] [place] [phone] * Alpha-Fetoprotein, Tumor Marker (09/22/2024 11:28 AM EDT) [facility] Alpha Fetoprotein 2.1 ng/mL [facility] Comment:Reference Range: <6. 1The use of AFP as a tumor marker in females is not recommended.This test was performed using the Valente Coulterchemiluminescent method. Values obtained fromdifferent assay methods cannot be usedinterchangeably. AFP levels, regardless ofvalue, should not be interpreted as absoluteevidence of the presence or absence of disease.THIS TEST WAS PERFORMED AT:[facility] [place] [id number] GALLEGOS MD Blood Venous blood specimen / Unknown 09/22/2024 11:28 AM EDT 09/22/2024 1:03 PM EDT us Mala Burton DO LAB BLOOD ORDERABLES Final R esult [facility] [address] [place] [phone] * Chlamydia/N. Gonorrhoeae RNA, TMA, Urogenitial (09/22/2024 11:28 AM EDT) CT PCR NOT DETECTED Not Detect. [facility] Comment:A not detected test result does not exclude the possibilityof infection because test results can be affected byimproper specimen collection, concurrent antibiotic therapy,or the number of organisms in the specimen which may bebelow the sensitivity of the test. As with many diagnostictests, results from the Xpert CT/NG assay should beinterpreted in conjunction with other laboratory andclinical data available to the clinician.Xpert CT/NG performance has not been evaluated in patientsless than 14 years of age. The assay should not be used forthe evaluationof suspected sexual abuse or for other medico-legalindications. Additional testing is recommended in anycircumstance when false positive or false negative resultscould lead to adverse medical, social or psychologicalconsequences. NG PCR NOT DETECTED Not Detect. [facility] Comment:A not detected test result does not exclude the possibilityof infection because test results can be affected byimproper specimen collection, concurrent antibiotic therapy,or the number of organisms in the specimen which may bebelow the sensitivity of the test. As with many diagnostictests, results from the Xpert CT/NG assay should beinterpreted in conjunction with other laboratory andclinical data available to the clinician.Xpert CT/NG performance has not been evaluated in patientsless than 14 years of age. The assay should not be used forthe evaluationof suspected sexual abuse or for other medico-legalindications. Additional testing is recommended in anycircumstance when false positive or false negative resultscould lead to adverse medical, social or psychologicalconsequences. Urine Urethral structure / Unknown 09/22/2024 11:28 AM EDT 09/22/2024 1:00 PM EDT Narrative [facility] - 09/23/2024 2:37 AM EDT Urine Mala Burton DO LAB MICROBIOLOGY - GENERAL O RDERABLES Final Result Performing Organization Address [facility] Co de Phone Number [facility] [address] [place] [phone] * Hepatitis B surface antigen, EIA (09/22/2024 11:28 AM EDT) Hepatitis B Surface Ag Negative Negative [facility] Blood Venous blood specimen / Unknown 09/22/2024 11:28 AM EDT 09/22/2024 1:03 PM EDT Mala Burton DO LAB BLOOD ORDERABLES Final R esult Performing Organization Address [facility] Phone Number [facility] [address] [place] [phone] * RPR (Monitor) with Reflex to??Titer (09/22/2024 11:28 AM EDT) Pathologist [facility] RPR (Monitor) w/Refl Titer NON-REACTI VE NON-REACT ABDULKADIR [facility] Comment:THIS TEST WAS PERFOR MED AT:[facility] [place] [phone] GALLEGOS MD Rapid Plasma Reagin Ab Titer TNP [facility] Blood Venous blood specimen / Unknown 09/22/2024 11:28 AM EDT 09/22/2024 1:08 PM EDT Mala Burton DO LAB BLOOD ORDERABLES Final R esult Performing Organization Address [facility] Co de Phone Number [facility] [address] [place] [phone] * HIV-1/2 Antigen and Antibodies, Fourth Generation, with Reflexes (09/22/2024 11:28 AM EDT) HIV AB/AG Nonreactive Nonreactive [facility] Comment:HIV-1 p24 Ag and/or HIV-1/HIV-2 Ab not detected.A test result that is nonreactive does not exclude thepossibility of exposure to or infection with HIV-1 and/orHIV-2. Nonreactive results in this assay for individualswith prior exposure to HIV-1 and/or HIV-2 may be due toantigen and antibody levels that are below the limit ofdetection of this assay.The [employer] HIV Ag/Ab Combo assay result andsupplemental assay results should be interpreted inconjunction with the patient's clinical presentation,history and other laboratory results. If the results areinconsistent with clinical evidence, additional testing issuggested to confirm the result. Blood Venous blood specimen / Unknown 09/22/2024 11:28 AM EDT 09/22/2024 1:03 PM EDT Mala Bruton DO LAB BLOOD ORDERABLES Final R esult Performing Organization Address City/[facility]/ZIP Co de Phone Number [facility] [address] [place] [phone] * Hepatitis B Surface Antibody, Qualitative (09/22/2024 11:28 AM EDT) [facility] ~Hepatitis B Surface Antibody REACTIVE Nonreactive [facility] Comment:REACTIVE: > 11.99 mI U/mL Blood Venous blood specimen / Unknown 09/22/2024 11:28 AM EDT 09/22/2024 1:03 PM EDT Mala Burton [employer] LAB BLOOD ORDERABLES Final R esult Performing Organization Address [facility] Co de Phone Number [facility] [address] [place] [phone] * (ABNORMAL) CBC (09/22/2024 11:28 AM EDT) [facility] White Blood Count 11.1(H) 4.8 - 10.8 X10*3/uL [facility] Red Blood Count 4.88 4.20 - 5.50 X10*6/uL [facility] Hemoglobin 10.4(L) 12.0 - 16.0 g/dl [facility] Hematocrit 34.0(L) 37.0 - 47.0 % [facility] Mean Corpuscular Volume 69.7(L) 80.0 - 98.0 fL [facility] Mean Corpuscular Hemoglobin 21.3(L) 27.0 - 33.0 pg [facility] Mean Corpuscular HGB Conc 30.6(L) 31.0 - 35.0 g/dl [facility] Red Cell Distribution Width 17.7(H) 11.0 - 16.0 % [facility] Platelet Count 395 160 - 400 X10*3/uL [facility] Mean Platelet Volume 10.4 9.4 - 12.3 fL [facility] NRBC Pct Auto 0.0 0.0 - 0.2 /100WBC [facility] NRBC Abs Auto 0.000 0.0 - 0.012 X10*3/uL [facility] Blood Venous blood specimen / Unknown 09/22/2024 11:28 AM EDT 09/22/2024 1:08 PM EDT us Mala Burton DO LAB BLOOD ORDERABLES Final R esult [facility] [address] [place] [phone] * TSH (09/22/2024 11:28 AM EDT) Thyroid Stimulating Hormone 3.80 0.32 - 4.0 uIU/mL [facility] Comment:Note: A sustained TS H level above 2.5 uIU/mL may warrant further investigation. TSH 3rd Generation ([facility]) Blood Venous blood specimen / Unknown 09/22/2024 11:28 AM EDT 09/22/2024 1:03 PM EDT Mala Burton LAB BLOOD ORDERABLES Final R esult Performing Organization Address City/[facility] Co de Phone Number [facility] [address] [place] [phone] * T4, Free (09/22/2024 11:28 AM EDT) Free T4 (Free Thyroxine) 1.01 0.71 - 1.85 ng/dL [facility] Blood Venous blood specimen / Unknown 09/22/2024 11:28 AM EDT 09/22/2024 1:03 PM EDT Mala Burton LAB BLOOD ORDERABLES Final R esult Performing Organization Address [facility] Phone Number [facility] [address] [place] [phone] * (ABNORMAL) Hemoglobin A1c (09/22/2024 11:28 AM EDT) Hemoglobin A1c 6.2(H) <6.0 % [facility] Comment:Hemoglobin A1C Refer ence Range Adults: 4.8 - 6.0 % Non diabetic: < 6.0 % Goal: < 7.0 %Additional Action Suggested: > 8.0 %Note: Hemoglobin A1c results are invalid for patients with abnormal amounts of HbF. Blood transfusions may impact the HbA1c concentration in the patient sample. Estimated Average Glucose 131 mg/dL [facility] Comment:eAG = Estimated ave rage glucose which is %A1C expressed asaverage glucose, using the formula of the K1H-SemaffcPhtvwhc Glucose study (ADAG), Diabetes Care, Vol.31,#8,2007 Blood Venous blood specimen / Unknown 09/22/2024 11:28 AM EDT 09/22/2024 1:03 PM EDT Mala Burton DO LAB BLOOD ORDERABLES Final R esult Performing Organization Address [facility] Co de Phone Number [facility] [address] [place] [phone] * Ferritin (09/22/2024 11:28 AM EDT) Pathologist [facility] Ferritin 10 10 - 250 ng/mL [facility] Blood Venous blood specimen / Unknown 09/22/2024 11:28 AM EDT 09/22/2024 1:03 PM EDT Mala Burton DO LAB BLOOD ORDERABLES Final R esult Performing Organization Address City/[facility]/ZIP Co de Phone Number [facility] [address] [place] [phone] * (ABNORMAL) Hepatic Function Panel (09/22/2024 11:28 AM EDT) Pathologist [facility] Bilirubin, Total 0.7 0.0 - 1.0 mg/dL [facility] Bilirubin, Direct 0.2 0.0 - 0.5 mg/dL [facility] Aspartate Amino Transferase 32(H) 5 - 31 U/L [facility] Alanine Aminotransferase 25 0 - 31 U/L [facility] Total Protein 7.5 6.5 - 8.0 g/dL [facility] Albumin Level 3.9 3.5 - 5.0 g/dL [facility] Alkaline Phosphatase 113 39 - 117 U/L [facility] Blood Venous blood specimen / Unknown 09/22/2024 11:28 AM EDT 09/22/2024 1:03 PM EDT Mala Burton DO LAB BLOOD ORDERABLES Final R esult [facility] [address] [place] [phone] * (ABNORMAL) Lipid Panel, Standard (09/22/2024 11:28 AM EDT) Triglycerides 180(H) <150 mg/dL [facility] Comment:Desirable Triglyceri de: less than 150 mg/dLBorderline High Triglyceride 150-199 mg/dLHigh Triglyceride: 200-499 mg/dLVery High Triglyceride: greater than or equal to 5OO mg/dL Cholesterol 165 <200 mg/dL [facility] Comment:Desirable Cholestero l: less than 200 mg/dLBorderline High Cholesterol: 200-239 mg/dLHigh Cholesterol: greater than 239 mg/dL LDL Cholesterol Calculated 88 <100 mg/dL [facility] Comment:Desirable LDL: less than 100 mg/dLNear Optimal/Above Optimal LDL: 110- 129 mg/dLBorderline High LDL: 130-159 mg/dLHigh LDL: 160-189 mg/dLVery High LDL: greater than or equal to 190 mg/dL HDL Cholesterol 41 >40 mg/dL [facility] Comment:Desirable HDL: great er than 40 mg/dL Note: This HDL assay may give artificially low results in patients with liver disease. Blood Venous blood specimen / Unknown 09/22/2024 11:28 AM EDT 09/22/2024 1:03 PM EDT us Mala Burton DO LAB BLOOD ORDERABLES Final R esult [facility] [address] [place] [phone] * (ABNORMAL) Basic Metabolic Panel (09/22/2024 11:28 AM EDT) Sodium 137 135 - 145 mmol/L [facility] Potassium 4.0 3.3 - 5.1 mmol/L [facility] Chloride 105 96 - 108 mmol/L [facility] Carbon Dioxide 25 22 - 29 mmol/L [facility] Anion Gap 11(L) 12 - 20 [facility] Urea Nitrogen (BUN) 9 9 - 16 mg/dL [facility] Creatinine, Serum 0.66 0.5 - 1.4 mg/dL [facility] Estimated Glomerular Filt Rate >60 [facility] Comment:Chronic Kidney Disea se: Estimated GFR < 60 mL/min/[id number] Kidney Disease: Estimated GFR < 15 mL/min/1.73m2 Glucose 120(H) 60 - 115 mg/dL [facility] Calcium 9.0 8.4 - 10.2 mg/dL [facility] Blood Venous blood specimen / Unknown 09/22/2024 11:28 AM EDT 09/22/2024 1:03 PM EDT Mala Burton DO LAB BLOOD ORDERABLES Final R esult [facility] [address] [place] [address] [phone] * (ABNORMAL) POCT HGB A1C (09/22/2024 10:53 [...] TEST ENTER/GLORIA T ORDERABLES Final Result * BI Mammogram Screening Tomosynthesis Bilateral (07/19/2023 1:44 PM EST) Anatomical Region Laterality Modality Breast Bilateral Mammography 07/19/2023 1:44 PM EST Narrative 08/05/2023 9:22 PM EST ? [facility] ? [address] ?[place] [address] ? Mammography Report ? Signed ? Patient: Nish,Shilpa ?MR#: [id number] ?? [id number] ? : 1980 ?Acct:[id number] ? Age/Sex: 42 / F ?ADM Date: 07/19/23 ? Loc: HO.MAMMO ? Attending Dr: Mala Burton DO ? Ordering Physician: Mala Burton DO ?Results: 1N ?? egative ? Date of Service: 07/19/23 ?Follow Up: 1 Year From Orig ?? inal Mammogram ? Procedure(s): MM tomosynthesis screening BI ?? Accession Number(s): [id number] ? cc: Mala Burton DO ? EXAMINATION: [...] MD in OV> ? 08/05/232118 ? DD/ 1344 ? TD/TT: ? Cant Hooker: ? Procedure Note Mike, Image - 08/05/2023 [facility] [address] [place] [address] Mammography Report Signed Patient: Melvin Mock#: [id number] : 1980Acct:[id number] Age/Sex: 42 / FADM Date: 07/19/23 Loc: HO.MAMMO Attending Dr: Mala Burton DO Ordering Physician: Mala Burtonults: 1N egative Date of Service: 07/19/23Follow Up: 1 Year From Orig inal Mammogram Procedure(s): MM tomosynthesis screening BI Accession Number(s): [id number] cc: Mala Burton DO EXAMINATION: MM SCREENING [...] in OV> 08/05/23 2119 DD/ 1344 TD/TT: Cant Hooker: Mala Josephine DO IMG BI PROCEDURES Final Resu lt * Hm Pap Smear (12/11/2021) Pap Negative for intraephithelial lesion or malignancy Negative for intraephithelial lesion or malignancy, Other HPV Undetected Historical Provider HEALTH MAINTENANCE Final Result from Last 3 Months or Most Recently Relevant to Health Maintenance Insurance [facility] FULL [facility] LIMITED [place] LIMITED ADULT DENTAL - [facility] FULL (MEDICAID) Care Teams Clinical Informatics Spec Relationship Specialty Start Date End Date Mala Burton DO [address] [place] [phone] PCP - General Family Medicine 11/10/11
== END 2024-10-05 11:05 | disposition home or self-care (01) ==
LOC: HO.MAMMO 11:04
PROVIDERS: PCP Family Medicine; Visit Provider Family Medicine
DX: Z12.31 Encounter for screening mammogram for malignant neoplasm of breast (principal)
CPT/HCPCS: 77063; 77067

== ENCOUNTER → 2024-10-05 11:30 | Outpatient (BNV) | payer SELFPAY | PROVIDERS: PCP Family Medicine; Visit Provider Internal Medicine | DX: Z12.31 Encounter for screening mammogram for malignant neoplasm of breast (principal) | CPT/HCPCS: 77063; 77067 ==

== ENCOUNTER 2024-10-17 09:26 | Outpatient (REF) | payer MEDICAID, OTHER, SELFPAY ==
--- NOTE | 2024-10-17 09:32 | EMG_ITS ---
Bilateral median and ulnar motor and sensory studies were performed. Bilateral radial sensory study was performed, bilateral median and lateral antecubital brachial sensory studies were performed and needle examination was performed. 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 Otherwise, no significant abnormality noted. MD KATIANA Fam/GRACE / [id number]
--- NOTE | 2024-10-17 09:42 | CA_ITS ---
Transthoracic Echocardiogram Patient (Last, First, Middle): Shilpa Mock, Gender: Female Date of : 1980 Age: 44 Procedure Date: 10/17/2024 Procedure Type: Transthoracic Echocardiogram Location: OP Height: 152.4 cm Weight: 88. kg BSA: 1.84 m2 Heart Rate: 71 bpm BP: 122 / 70 mmHg Top Lift Compressor: ELLA Referring MD: Mala Burton DO Assisted Living Associate: Chet Malloy MD Symptoms: CHEST PAIN R07.9 Study Quality: Adequate ECG Rhythm: Sinus Conclusions: - Essentially normal study Findings Left Ventricle Normal left ventricular size, thickness, and systolic function. The visually estimated ejection fraction is between 60-65%. Spectral Doppler is indicative of a normal filling pattern. Right Ventricle Normal right ventricular cavity size and systolic function. Atria Both atria are normal in size. There is lipomatous hypertrophy of the interatrial septum. There is no evidence of interatrial shunt. Aortic Valve Normal aortic valve structure and function. There is no aortic valve stenosis. There is no aortic valve regurgitation. Mitral Valve Normal mitral valve structure and function. There is trace mitral valve regurgitation. There is no mitral valve stenosis. Pulmonic Valve The pulmonic valve was not well visualized. Tricuspid Valve Likely normal tricuspid valve structure and function. There is trace tricuspid valve regurgitation. The right ventricular systolic pressure is normal. The right ventricular systolic pressure is 27 mmHg. Normal right atrial pressure. There is no evidence of pulmonary hypertension. Great Vessels All visible segments of the aorta are normal in size. The pulmonary artery was not well visualized. Venous The inferior vena cava is normal in size and collapses greater than 50% with inspiration. Pericardium/Pleural There is no evidence of pericardial effusion. Prior Study Comparison No prior study available for comparison. Measurements 2D Linear Measurements IVSd: 0.75 0.6-0.9/0.6-1.0 cm LVIDd: 4.83 3.9-5.3/4.2-5.9 cm LVIDd Index: 2.63 2.4-3.2/2.2-3.1 cm/m2 LVIDs: 3.41 2.0-3.6 cm LVPWd: 0.84 0.7-1.1 cm LA Diam: 3.30 2.7-3.8/3.0-4.0 cm LAIDs Index: 1.79 1.5-2.3 cm/m2 LV Mass: 157.24 67-162/88-224 g LV Mass Index: 85.45 43-95/49-115 g/m2 LVOT Diam: 2.10 3.0+(-)1.3 cm 2D Systolic Function EF 4C: 61.90 >55% EF 2C: 60.70 >55% EF BiP: 60.50 >55% Mitral Valve MV Pk E: 1.07 MV PK A: 0.61 MV Decel Time: 191.00 E/A: 1.70 E'Lateral: 10.40 E'Medial: 8.81 E/E' Med: 12.10 E/E' Lat: 10.30 PHT: 56.00 MVA PHT: 3.93 Decel Mitchell: 5.60 Aortic Valve AoV Pk Laci: 1.50 AoV Pk Grad: 9.00 TEE: 2.90 LVOT LVOT Pk Laci: 1.22 LVOT Mn Laci: 0.84 LVOT VTI: 0.25 LVOT Pk Grad: 6.00 LVOT Mn Grad: 3.00 LVOT Diam: 2.10 LVOT Area: 3.46 Diastolic Function MV Pk E: 1.07 MV Pk A: 0.61 E/A: 1.70 E'Medial: 8.81 E/E' Med: 12.10 E' Laterial: 10.40 E/E' Lat: 10.30 Right Ventricle TAPSE (mm): 20.80 TVS' Laci: 11.10 Tricuspid Valve TR Pk Laci: 2.45 TR Pk Grad: 24.00 RA Press: 3.00 RVSP: 27.00 Great Vessels Aorta Sinus of Valsalva: 2.90 2.0-3.5 cm Ao Asc: 2.60 2.1-3.4 cm Pulmonary Veins Pulm Vein S/D 0.90 Pulmonary Valve PV Pk Laci: 1.00 Peak PV Grad: 4.00 Updated in Other Vendor System with Status of Final Chet Malloy MD electronically signed on 10/18/2024 4:46:39 PM with status of Final
--- OUTSIDE RECORDS SUMMARY | 2024-10-17 10:04 | XMS_ITS | Encounter Summary ---
Author Organization [employer] Address [address] [facility] [address] [place] [address] Care Team Providers Care Geothermal Operations Engineer Name Role Phone Mala Burton DO Primary Care Provider + [phone] Reason for Visit * Reason Onset Date Comments Nurse Triage 04/05/2023 Encounter Details Date Type Department Care Team ([facility] st Contact Info) Description 04/05/2023 Telephone [facility] MEDICINE [address] [place], [place] [phone] Mala Burton DO [address] [place], [place] [phone] Nurse Triage Social History Tobacco Use Types [...] past 12 months, has t he electric, [employer], oil or water [employer] threatened to shut off services in your [...] 04/05/2023 12:50 PM EDT Triage call with [employer] Analyst [place] [id number] Pt reports having chronic low back pain [...] injury. Pt is advised to come to [facility] today to be seen by [...] The caller accepted this outcome Patient speaks lao documented in this encounter Plan of Treatment Upcoming Encounters Date Type Department Care Team (Late st Contact Info) Description 11/14/2024 2:00 PM EDT Office Visit [facility] ADULT DENTAL [address] [place] [address] Lea Lucas 01/16/2025 3:00 PM EDT Office Visit [facility] ADULT DENTAL [address] [place] [address] Lea Lucas documented as of this encounter Visit Diagnoses Not on filedocumented in this encounter Additional Health Concerns Assessment Noted Time PHQ-9 Depression Total Score: 0 07/17/19 23 9:22 AM EST documented as of this encounter Care Teams Geothermal Operations Engineer Relationship Specialty Start Date End Date Mala Burton DO [address] [place] [address] PCP - General Family Medicine 11/10/11 documented as of this encounter
--- OUTSIDE RECORDS SUMMARY | 2024-10-17 10:04 | XMS_ITS | Encounter Summary ---
Author Organization [employer] Address [address] [facility] [address] [place] [address] Care Team Providers Care Induction Machine Operator Name Role Phone Mala Burton DO Primary Care Provider + [phone] Reason for Visit * Reason Onset Date Comments Results 10/13/2024 Encounter Details Date Type Department Care Team (Late st Contact Info) Description 10/13/2024 Refill [facility] MEDICINE [address] [place], [place] [phone] Mala Burton DO [address] [place], [place] [phone] Social History Tobacco Use Types Packs/Day Years [...] is your housing situation today? I have setphan beckett 09/22/[address] you [...] encounter Miscellaneous Notes * Telephone Encounter - Jorge Narvaez RN - 10/16/2024 3:38 PM EDT TC placed to patient [phone] via [employer] ([employer] #[id number]) to inform patient of blood work results. Patient verbalized understanding and did not have any further questions/concerns. Patient to f/u PRN. * Addendum Note - Jorge Narvaez RN - 10/13/2024 2:41 PM EDTAddended by: JORGE NARVAEZ on: 10/13/2024 02:41 PM Modules accepted: Orders * Telephone Encounter - Jorge Narvaez RN - 10/13/2024 2:37 PM EDT RN reviewed BW results with PCP which returned stable/WNL except low vitamin D. Patient will need daily vitamin D. TC placed to patient [phone] however no answer, RN left VM requesting CB to red team nurses. TC placed to patient [phone] however also no answer, RN left VM requesting CB to red team nurses. RN will re-attempt Wednesday AM. documented in this encounter Plan of Treatment Upcoming Encounters Date Type Department Care Team (Late st Contact Info) Description 11/14/2024 2:00 PM EDT Office Visit [facility] ADULT DENTAL [address] [place] [address] Lea Lucas 01/16/2025 3:00 PM EDT Office Visit [facility] ADULT DENTAL [address] [place] [address] Lea Lucas documented as of this encounter Visit Diagnoses Not on filedocumented in this encounter Additional Health Concerns Assessment Noted Time PHQ-9 Depression Total Score: 0 09/23/19 25 10:24 AM EDT documented as of this encounter Care Teams Induction Machine Operator Relationship Specialty Start Date End Date Mala Burton DO [address] [place] [address] PCP - General Family Medicine 11/10/11 documented as of this encounter
--- OUTSIDE RECORDS SUMMARY | 2024-10-17 10:04 | XMS_ITS | Encounter Summary ---
Author Organization [employer] Address [address] [facility] [address] [place] [address] Care Team Providers Care Smash Fixer Name Role Phone Mala Burton DO Primary Care Provider + [phone] Reason for Visit * Reason Onset Date Comments Nurse Triage 09/29/2023 Encounter Details Date Type Department Care Team (Late st Contact Info) Description 09/29/2023 Telephone [facility] MEDICINE [address] [place], [place] [phone] Mala Burton DO [address] [place], [place] [phone] Nurse Triage Social History Tobacco Use Types [...] past 12 months, has t he electric, [employer], oil or water [employer] threatened to shut off services in your [...] 09/29/2023 3:44 PM EDT Triage call with [employer] Human Services Professional ID [id number] Pt reports continued right upper quadrant abdominal pain. Pt was seen in [facility] ED 09/27/23 impression of microcytic anemia and [...] past 3 days, pt was seen at [facility] on 09/26 for abdominal pain. Pt is symptomatic The caller accepted this outcome Please contact pt at [phone] (security director needed) documented in this encounter Plan of Treatment Upcoming Encounters Date Type Department Care Team (Late st Contact Info) Description 11/14/2024 2:00 PM EDT Office Visit [facility] ADULT DENTAL [address] [place] [address] Lea Lucas 01/16/2025 3:00 PM EDT Office Visit [facility] ADULT DENTAL [address] [place] [address] Lea Lucas documented as of this encounter Visit Diagnoses Not on filedocumented in this encounter Additional Health Concerns Assessment Noted Time PHQ-9 Depression Total Score: 0 07/17/19 23 9:22 AM EST documented as of this encounter Care Teams Smash Fixer Relationship Specialty Start Date End Date Mala Burton DO [address] [place] [address] PCP - General Family Medicine 11/10/11 documented as of this encounter
--- OUTSIDE RECORDS SUMMARY | 2024-10-17 10:04 | XMS_ITS | Clinical Summary ---
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 150 g 2 4 Active omeprazole (PriLOSEC) [address] [place] ons:RUQ pain Take 1 capsule (20 mg) by mouth before breakfast. Do not crush or chew. 90 capsule 3 4 Active atorvastatin (Lipitor) 10 MG tablet Take [...] 40 tablet 1 5 09/23/19 26 Active cholecalciferol (Vitamin D-3) 50 MCG (2000 UT) capsule Take 1 capsule (50 mcg) by mouth Once per day. 90 capsule 3 5 10/16/19 26 Active docusate sodium (Colace) 100 MG capsule Take 1 capsule (100 mg) by mouth Once per day. With iron supplement 90 capsule 3 4 10/11/19 25 Active Problems Problem Noted Date Diagnosed Date Hyperlipidemia 02/18/2024 Healthcare maintenance 02/18/2024 Anemia 10/11/2023 Bone lesion 02/17/2023 Type 2 diabetes mellitus 02/17/2023 Fatty liver 02/17/2023 Chronic gastroesophageal reflux disease 11/25/19 16 BMI 36.0-36.9,adult 11/25/2015 Vitamin D deficiency 11/25/2015 Resolved Problems Problem Noted Date Diagnosed Date Resolved Date Depressive disorder 11/25/2015 02/18/20 23 Encounters Date Type Department Care Team Description 10/13/2024 Refill [facility] [place] [address] Mala Burton DO 09/22/2024 10:15 AM EDT Office Visit [facility] [place] [address] Mala Burton DO Type 2 diabetes mellitus without complication, without long-term current use of insulin ([facility]) (Primary Dx); Other hyperlipidemia; Fatty liver; Chronic gastroesophageal reflux disease; Anemia, unspecified type; Bone lesion; Paresthesia of both hands; Chest pain, unspecified type; Healthcare maintenance; Encounter for immunization; Encounter for screening mammogram for malignant neoplasm of breast 09/22/2024 Telephone [place] [address] Mala Burton DO Durable Medical Equipment (DME Request: Bilateral Wrist Braces) 09/22/2024 Travel 09/13/2024 Patient Outreach [place] [address] Mala Burton DO Pre-visit Planning ((Unable to reach for PVP screening, LVM)) 08/14/2024 10:30 AM EDT Office Visit [facility] [place] [address] Amada Chatman DDS Encounter for dental examination (Primary Dx) 08/02/2024 10:30 AM EST Office Visit [facility] [place] [address] Amada Chatman DDS Dental caries (Primary Dx) 07/27/[address] [address] Mala Burton DO Recall Appt. 07/27/2024 Travel from Last 3 Months Immunizations Name Administration [...] Description 11/14/2024 2:00 PM EDT Office Visit [facility] [address] [place] [address] Lea Lucas 01/16/2025 3:00 PM EDT Office Visit [facility] [address] [place] [address] Lea Lucas Health Maintenance Due Date Last Done Comments Diabetes: Foot Exam 09/09/1991 Family Planning (PISQ) 1996 Hepatitis A Vaccines (1 of 2 - Risk 2-dose series) 2000 Hepatitis B Vaccines (3 of 3 - 19+ 3-dose series) 04/14/2024 02/18/2024, 03/17/2011, 02/12/2011 Dental Oral Exam 11/15/2024 05/16/2024, , 07/07/2016, [...] Screening 09/22/2025 09/22/2024 Tobacco Screening 09/22/2025 09/22/2024 Mammogram 10/05/2025 10/05/2024, 07/08, 02/12/2022, Additional history exists Eye Exam 11/17/2025 11/18/2023, 11/05, 11/18/2023, Additional history exists Cervical Cancer Screening 12/11/2026 HPV/Cotest 12/11/2026 12/11/2021, 12/2021, 12/11/2021, Additional history exists Pap Smear [...] Additional history exists HIV Screening Completed 09/22/2024, 11/2022, 05/20/2021, Additional history exists Hepatitis C [...] Procedure Name Priority Date/Time Associated Diagnosis Comments BI MAMMOGRAM SCREENING TOMOSYNTHESIS BILATERAL Routine 10/05/2024 11:10 AM EDT Encounter for screening mammogram for malignant neoplasm of breast IRON AND TOTAL IRON BINDING CAPACITY Routine [...] complication, without long-term current use of insulin ([facility]) Other hyperlipidemia Fatty liver Chronic gastroesophageal reflux disease Anemia, unspecified type Bone lesion Healthcare maintenance Paresthesia of both hands Chest pain, unspecified type T4, FREE Routine 09/22/2024 11:28 AM EDT Type 2 diabetes mellitus without complication, without long-term current use of insulin ([facility]) Other hyperlipidemia Fatty liver Chronic gastroesophageal reflux disease Anemia, unspecified type Bone lesion Healthcare maintenance Paresthesia of both hands Chest pain, unspecified type CHLAMYDIA/N. GONORRHOEAE RNA, TMA, UROGENITAL Routine 09/22/2024 11:28 AM EDT Type 2 diabetes mellitus without complication, without long-term current use of insulin ([facility]) Other hyperlipidemia Fatty liver Chronic gastroesophageal reflux disease Anemia, unspecified type Bone lesion Healthcare maintenance Paresthesia of both hands Chest pain, unspecified type POCT GLYCATED HEMOGLOBIN, TOTAL Routine 09/22/2024 10:53 AM EDT Type 2 diabetes mellitus without complication, without long-term current use of insulin ([facility]) POCT GLUCOSE Routine 09/22/2024 10:53 AM EDT Type 2 diabetes mellitus without complication, without long-term current use of insulin ([facility]) NO CHARGE PROCEDURE Routine 08/14/2024 1 0:30 AM EDT Encounter for dental examination CASE PRESENTATION, DETAILED AND EXTENSIVE TREATMENT PLANNING Routine 08/02/2024 10:30 AM EST Dental caries 3 MOD RESIN-BASED COMPOSITE - 3 SURF, POSTERIOR Routine 08/02/2024 10:30 AM EST Dental caries PROPHYLAXIS - ADULT Routine 07/11/2024 2 :30 PM EST Dental plaque Dental calculus INTRAORAL - COMPLETE SERIES OF RADIOGRAPHIC IMAGES Routine 05/16/2024 1:30 PM EST Encounter for dental examination Dental calculus Dental caries COMPREHENSIVE ORAL EVALUATION - NEW OR ESTABLISHED PATIENT Routine 05/16/2024 1:30 PM EST Encounter for dental examination Dental calculus Dental caries HM PAP/HPV Routine 12/11/2021 from Last 3 Months or Most Recently Relevant to Health Maintenance Results * BI Mammogram Screening Tomosynthesis Bilateral (10/05/2024 11:10 AM EDT) Anatomical Region Laterality Modality Breast Bilateral Mammography 10/05/2024 11:1 0 AM EDT Narrative 10/10/2024 5:42 PM EDT ? [facility] ? [address] ?[place] [address] ?[phone] ? Mammography Report ? Signed ? Patient: Shilpa Mock ?MR#: [id number] ?? [id number] ? : 1980 ?Acct:[id number] ? Age/Sex: 44 / F ?ADM Date: 10/05/ ? Loc: HO.MAMMO ? Attending Dr: Mala Burton DO ? Ordering Physician: Mala Burton DO ?Results: 1N ?? egative ? Date of Service: // ?Follow Up: 1 Year From Orig ?? inal Mammogram ? Procedure(s): MM tomosynthesis screening BI ?? Accession Number(s): [id number] ? cc: Mala Burton DO ? EXAMINATION: ?? MM SCREENING DIGITAL BREAST TOMOSYNTHESIS, BILATERAL ? CLINICAL INFORMATION: ? Screening. Asymptomatic. ? COMPARISON: ?? Mammography: Comparison is made with available priors ? TECHNIQUE: ?? Digital breast mammography with tomosynthesis is performed in both the ?? craniocaudal and mediolateral oblique views along with computer-aided ?? detection (CAD). ? FINDINGS: ?? There are scattered areas [...] due date for their next mammogram. ? Electronically signed by: ??Debbie Higuera DO ??10/10/2024 05:39 PM EDT ?? RP ? Dictated By: ?Debbie iHguera DO ? Signed By: ?<Electronically signed by Debbie Higuera, DO in OV> ? 10/10/24 1739 ? DD/ 1110 ? TD/TT: 10/05/24 1135 ? System Software Developer: ? Procedure Note Byron Mckeon - 10/10/2024 [facility] [address] [place] [address] Mammography Report Signed Patient: Melvin Mock#: [id number] : 1980Acct:[id number] Age/Sex: 44 / FADM Date: 10/05/24 Loc: HO.MAMMO Attending Dr: Mala Burton DO Ordering Physician: Mala Burtonults: 1N egative Date of Service: 10/05/24Follow Up: 1 Year From Orig inal Mammogram Procedure(s): MM tomosynthesis screening BI Accession Number(s): [id number] cc: Mala Burton DO EXAMINATION: MM SCREENING DIGITAL BREAST TOMOSYNTHESIS, BILATERAL CLINICAL INFORMATION: Screening. Asymptomatic. COMPARISON: Mammography: Comparison is made with available priors TECHNIQUE: Digital breast mammography with tomosynthesis is performed in both the craniocaudal and mediolateral oblique views along with computer-aided detection (CAD). FINDINGS: There are scattered areas of fibroglandular [...] target due date for their next mammogram. Electronically signed by: Debbie Higuera DO 10/10/2024 05:39 PM EDT RP Dictated By: Debbie Higuera DO Signed By: <Electronically signed by Debbie Higuera DO in OV> 10/10/24 1739 DD/ 1110 TD/TT: 10/05/24 1135 System Software Developer: Mala Burton DO IMG BI PROCEDURES Final Resu lt * (ABNORMAL) Vitamin D, 25-Hydroxy, Total, Immunoassay (09/22/2024 11:28 AM EDT) Vitamin D 25-OH Total 18.2(L) >30 ng/mL [facility] Comment: Health Based Reference Values*< 20 ??ng/mL ??Bfajmroyx16-82 ng/mL ??Insufficient> 30 ??ng/mL ??Sufficient*Simeon PONCE. N [...] AM EDT 09/22/2024 1:03 PM EDT Mala Josephine LAB BLOOD ORDERABLES Final R esult Performing Organization Address City/[facility]/ZIP Co de Phone Number [facility] [address] [place] [phone] * Vitamin B12 (Cobalamin) and Folate Panel, Serum (09/22/2024 11:28 AM EDT) Vitamin B12 444 200 - 900 pg/mL [facility] Comment:NORMAL 200-900 PG/ML INDETERMINATE 160-199 PG/ML DEFICIENT < 160 PG/ML Folate 8.3 > or = 4.0 ng/mL [facility] Comment:Reference Values:> o r = 4.0 ng/mL< 4.0 ng/mL suggests folate deficiency Methotrexate, aminopterin and folinic acid(leucovorin) are chemotherapeutic agents whose molecularstructures are similar to folate; therefore, the Architectfolate assay cannot be used for patients using these drugs. Blood 09/22/2024 11:2 8 AM EDT 09/22/2024 1:03 PM EDT Mala Josephine LAB BLOOD ORDERABLES Final R esult Performing Organization Address [facility] Co de Phone Number [facility] [address] [place] [address] [phone] * Albumin, Random Urine W/Creatinine (09/22/2024 11:28 AM EDT) Creatinine, Urine 226.32 mg/dL [facility] Microalbumin Urine 6.0 mg/L [facility] Microalbum Creatinine Ratio Ur 2.6 <30 ug/mg cr [facility] Comment:Albumin/Creatinine R atio Reference Ranges: Normal: < 30 ug/mg creatinine Microalbuminuria: 30 - 300 ug/mg creatinineClinical Albuminuria: > 300 ug/mg creatinine Urine (Urine, Random) 09/22/2024 11:28 AM EDT 09/22/2024 1:00 PM EDT Mala Josephine LAB URINE ORDERABLES Final R esult Performing Organization Address City/[facility] Co de Phone Number [facility] [address] [place] [phone] * Hepatitis C Antibody with Reflex to HCV, RNA, Quantitative, Real-Time PCR (09/22/2024 11:28 AM EDT) Hepatitis C Antibody Nonreactive Nonreactive [facility] Comment:Antibodies to HCV no t detected; does not exclude early acuteHCV infection. Blood Venous blood specimen / Unknown 09/22/2024 11:28 AM EDT 09/22/2024 1:03 PM EDT Mala Josephine RED LAB BLOOD ORDERABLES Final R esult Performing Organization Address City/[facility] Co de Phone Number [facility] [address] [place] [phone] * (ABNORMAL) Iron And Total Iron Binding Capacity (09/22/2024 11:28 AM EDT) Iron 36 30 - 160 mcg/dL [facility] Total Iron Binding Capacity 411 228 - 428 mcg/dL [facility] Percent Iron Saturation 9(L) 15 - 50 % [facility] Unsaturated Iron Binding 375 ug/dL [facility] Blood Venous blood specimen / Unknown 09/22/2024 11:28 AM EDT 09/22/2024 1:03 PM EDT Mala Burton DO LAB BLOOD ORDERABLES Final R esult Performing Organization Address City/[facility]/ZIP Co de Phone Number [facility] [address] [place] [phone] * Alpha-Fetoprotein, Tumor Marker (09/22/2024 11:28 AM EDT) [facility] Alpha Fetoprotein 2.1 ng/mL [facility] Comment:Reference Range: <6. 1The use of AFP as a tumor marker in females is not recommended.This test was performed using the Valente Coulterchemiluminescent method. Values obtained fromdifferent assay methods cannot be usedinterchangeably. AFP levels, regardless ofvalue, should not be interpreted as absoluteevidence of the presence or absence of disease.THIS TEST WAS PERFORMED AT:[facility] [place] [phone] GALLEGOS MD Blood Venous blood specimen / Unknown 09/22/2024 11:28 AM EDT 09/22/2024 1:03 PM EDT Mala Burton DO LAB BLOOD ORDERABLES Final R esult Performing Organization Address [facility] Co de Phone Number [facility] [address] [place] [phone] * Chlamydia/N. Gonorrhoeae RNA, TMA, Urogenitial (09/22/2024 11:28 AM EDT) [facility] CT PCR NOT DETECTED Not Detect. [facility] Comment:A not detected test result does [...] psychologicalconsequences. NG PCR NOT DETECTED Not Detect. [facility] Comment:A not detected test result does [...] AM EDT 09/22/2024 1:00 PM EDT Narrative [facility] - 09/23/2024 2:37 AM EDT Urine Mala Burton DO LAB MICROBIOLOGY - GENERAL O RDERABLES Final Result Performing Organization Address [facility]/ZIP Co de Phone Number [facility] [address] [place] [phone] * Hepatitis B surface antigen, EIA (09/22/2024 11:28 AM EDT) Hepatitis B Surface Ag Negative Negative [facility] Blood Venous blood specimen / Unknown 09/22/2024 11:28 AM EDT 09/22/2024 1:03 PM EDT us Mala Burton DO LAB BLOOD ORDERABLES Final R esult Performing Organization Address [facility]/ZIP Co de Phone Number [facility] [address] [place] [phone] * RPR (Monitor) with Reflex to??Titer (09/22/2024 11:28 AM EDT) RPR (Monitor) w/Refl Titer NON-REACTI VE NON-REACT ABDULKADIR [facility] Comment:THIS TEST WAS PERFOR MED AT:[facility] [place] [phone] GALLEGOS MD Rapid Plasma Reagin Ab Titer TNP [facility] Blood Venous blood specimen / Unknown 09/22/2024 11:28 AM EDT 09/22/2024 1:08 PM EDT us Mala Burton DO LAB BLOOD ORDERABLES Final R esult [facility] [address] [place] [phone] * HIV-1/2 Antigen and Antibodies, Fourth Generation, with Reflexes (09/22/2024 11:28 AM EDT) HIV AB/AG Nonreactive Nonreactive [facility] Comment:HIV-1 p24 Ag and/or HIV-1/HIV-2 Ab not detected.A test result that is nonreactive does not exclude thepossibility of exposure to or infection with HIV-1 and/orHIV-2. Nonreactive results in this assay for individualswith prior exposure to HIV-1 and/or HIV-2 may be due toantigen and antibody levels that are below the limit ofdetection of this assay.The Loku HIV Ag/Ab Combo assay result andsupplemental assay results should be interpreted inconjunction with the patient's clinical presentation,history and other laboratory results. If the results areinconsistent with clinical evidence, additional testing issuggested to confirm the result. Blood Venous blood specimen / Unknown 09/22/2024 11:28 AM EDT 09/22/2024 1:03 PM EDT us Mala Burton DO LAB BLOOD ORDERABLES Final R esult Performing Organization Address City/[facility]/ZIP Co de Phone Number [facility] [address] [place] [phone] * Hepatitis B Surface Antibody, Qualitative (09/22/2024 11:28 AM EDT) [facility] ~Hepatitis B Surface Antibody REACTIVE Nonreactive [facility] Comment:REACTIVE: > 11.99 mI U/mL Blood Venous blood specimen / Unknown 09/22/2024 11:28 AM EDT 09/22/2024 1:03 PM EDT Mala Burton DO LAB BLOOD ORDERABLES Final R esult Performing Organization Address [facility] Co de Phone Number [facility] [address] [place] [phone] * (ABNORMAL) CBC (09/22/2024 11:28 AM EDT) [facility] White Blood Count 11.1(H) 4.8 - 10.8 X10*3/uL [facility] Red Blood Count 4.88 4.20 - 5.50 X10*6/uL [facility] Hemoglobin 10.4(L) 12.0 - 16.0 g/dl [facility] Hematocrit 34.0(L) 37.0 - 47.0 % [facility] Mean Corpuscular Volume 69.7(L) 80.0 - 98.0 fL [facility] Mean Corpuscular Hemoglobin 21.3(L) 27.0 - 33.0 pg [facility] Mean Corpuscular HGB Conc 30.6(L) 31.0 - 35.0 g/dl [facility] Red Cell Distribution Width 17.7(H) 11.0 - 16.0 % [facility] Platelet Count 395 160 - 400 X10*3/uL [facility] Mean Platelet Volume 10.4 9.4 - 12.3 fL [facility] NRBC Pct Auto 0.0 0.0 - 0.2 /100WBC [facility] NRBC Abs Auto 0.000 0.0 - 0.012 X10*3/uL [facility] Blood Venous blood specimen / Unknown 09/22/2024 11:28 AM EDT 09/22/2024 1:08 PM EDT Mala Burton LAB BLOOD ORDERABLES Final R esult Performing Organization Address City/[facility]/ZIP Co de Phone Number [facility] [address] [place] [phone] * TSH (09/22/2024 11:28 AM EDT) Thyroid Stimulating Hormone 3.80 0.32 - 4.0 uIU/mL [facility] Comment:Note: A sustained TS H level above 2.5 uIU/mL may warrant further investigation. TSH 3rd Generation ([facility]) Blood Venous blood specimen / Unknown 09/22/2024 11:28 AM EDT 09/22/2024 1:03 PM EDT Mala Burton LAB BLOOD ORDERABLES Final R esult Performing Organization Address [facility] Co de Phone Number [facility] [address] [place] [phone] * T4, Free (09/22/2024 11:28 AM EDT) Free T4 (Free Thyroxine) 1.01 0.71 - 1.85 ng/dL [facility] Blood Venous blood specimen / Unknown 09/22/2024 11:28 AM EDT 09/22/2024 1:03 PM EDT Mala Burton DO LAB BLOOD ORDERABLES Final R esult Performing Organization Address City/[facility]/ZIP Co de Phone Number [facility] [address] [place] [phone] * (ABNORMAL) Hemoglobin A1c (09/22/2024 11:28 AM EDT) Hemoglobin A1c 6.2(H) <6.0 % [facility] Comment:Hemoglobin A1C Refer ence Range Adults: 4.8 - 6.0 % Non diabetic: < 6.0 % Goal: < 7.0 %Additional Action Suggested: > 8.0 %Note: Hemoglobin A1c results are invalid for patients with abnormal amounts of HbF. Blood transfusions may impact the HbA1c concentration in the patient sample. Estimated Average Glucose 131 mg/dL [facility] Comment:eAG = Estimated ave rage glucose which is %A1C expressed asaverage glucose, using the formula of the X6L-RukpalzGnzaahi Glucose study (ADAG), Diabetes Care, Vol.31,#8,2007 Blood Venous blood specimen / Unknown 09/22/2024 11:28 AM EDT 09/22/2024 1:03 PM EDT [facility] BLOOD ORDERABLES Final R esult Performing Organization Address City/[facility]/ZIP Co de Phone Number [facility] [address] [place] [phone] * Ferritin (09/22/2024 11:28 AM EDT) Ferritin 10 10 - 250 ng/mL [facility] Blood Venous blood specimen / Unknown 09/22/2024 11:28 AM EDT 09/22/2024 1:03 PM EDT [facility] BLOOD ORDERABLES Final R esult Performing Organization Address City/[facility]/ZIP Co de Phone Number [facility] [address] [place] [phone] * (ABNORMAL) Hepatic Function Panel (09/22/2024 11:28 AM EDT) Bilirubin, Total 0.7 0.0 - 1.0 mg/dL [facility] Bilirubin, Direct 0.2 0.0 - 0.5 mg/dL [facility] Aspartate Amino Transferase 32(H) 5 - 31 U/L [facility] Alanine Aminotransferase 25 0 - 31 U/L [facility] Total Protein 7.5 6.5 - 8.0 g/dL [facility] Albumin Level 3.9 3.5 - 5.0 g/dL [facility] Alkaline Phosphatase 113 39 - 117 U/L [facility] Blood Venous blood specimen / Unknown 09/22/2024 11:28 AM EDT 09/22/2024 1:03 PM EDT us Mala Burton DO LAB BLOOD ORDERABLES Final R esult [facility] [address] [place] [phone] * (ABNORMAL) Lipid Panel, Standard (09/22/2024 11:28 AM EDT) Triglycerides 180(H) <150 mg/dL [facility] Comment:Desirable Triglyceri de: less than 150 mg/dLBorderline High Triglyceride 150-199 mg/dLHigh Triglyceride: 200-499 mg/dLVery High Triglyceride: greater than or equal to 5OO mg/dL Cholesterol 165 <200 mg/dL [facility] Comment:Desirable Cholestero l: less than 200 mg/dLBorderline High Cholesterol: 200-239 mg/dLHigh Cholesterol: greater than 239 mg/dL LDL Cholesterol Calculated 88 <100 mg/dL [facility] Comment:Desirable LDL: less than 100 mg/dLNear Optimal/Above Optimal LDL: 110- 129 mg/dLBorderline High LDL: 130-159 mg/dLHigh LDL: 160-189 mg/dLVery High LDL: greater than or equal to 190 mg/dL HDL Cholesterol 41 >40 mg/dL [facility] Comment:Desirable HDL: great er than 40 mg/dL Note: This HDL assay may give artificially low results in patients with liver disease. Blood Venous blood specimen / Unknown 09/22/2024 11:28 AM EDT 09/22/2024 1:03 PM EDT Mala Burton DO LAB BLOOD ORDERABLES Final R esult Performing Organization Address City/[facility]/ZIP Co de Phone Number [facility] [address] [place] [phone] * (ABNORMAL) Basic Metabolic Panel (09/22/2024 11:28 AM EDT) Sodium 137 135 - 145 mmol/L [facility] Potassium 4.0 3.3 - 5.1 mmol/L [facility] Chloride 105 96 - 108 mmol/L [facility] Carbon Dioxide 25 22 - 29 mmol/L [facility] Anion Gap 11(L) 12 - 20 [facility] Urea Nitrogen (BUN) 9 9 - 16 mg/dL [facility] Creatinine, Serum 0.66 0.5 - 1.4 mg/dL [facility] Estimated Glomerular Filt Rate >60 [facility] Comment:Chronic Kidney Disea se: Estimated GFR < 60 mL/min/[id number] Kidney Disease: Estimated GFR < 15 mL/min/1.73m2 Glucose 120(H) 60 - 115 mg/dL [facility] Calcium 9.0 8.4 - 10.2 mg/dL [facility] Blood Venous blood specimen / Unknown 09/22/2024 11:28 AM EDT 09/22/2024 1:03 PM EDT us Mala Burton DO LAB BLOOD ORDERABLES Final R esult Performing Organization Address City/[facility]/ZIP Co de Phone Number [facility] [address] [place] [phone] * (ABNORMAL) POCT HGB A1C (09/22/2024 10:53 AM EDT) Hemoglobin A1C 6.1(A) 4.0 - 6.0 % QC Media Lot # [id number] Lot# Expiration Date , Blood 09/22/2024 10:5 3 AM EDT Mala Tristantezjacky DO POINT OF CARE TEST ENTER/GLORIA T ORDERABLES Final Result * POCT Glucose (09/22/2024 10:53 AM EDT) Glucose Blood, POC 136 60 - 200 mg/dL [employer] Media Lot # [id number] Lot# Expiration Date Blood Capillary blood specimen / Unknown 09/22/2024 10:53 AM EDT Mala Tristancammie DO POINT OF CARE TEST ENTER/GLORIA T ORDERABLES Final Result * Hm Pap Smear (12/11/2021) Pap Negative for intraephithelial lesion or malignancy Negative for intraephithelial lesion or malignancy, Other HPV Undetected Historical Provider HEALTH MAINTENANCE Final Result from Last 3 Months or Most Recently Relevant to Health Maintenance Insurance [facility] [place] ADULT DENTAL - [facility] FULL (MEDICAID) Care Teams [employer] Maintainer Relationship Specialty Start Date End Date Mala Burton DO [address] [place] [phone] PCP - General Family Medicine 11/10/11
--- OUTSIDE RECORDS SUMMARY | 2024-10-17 10:04 | XMS_ITS | Encounter Summary ---
Author Organization [facility] Address [address] [place] [address] Care Team Providers Care Field Director Name Role Phone Mala Burton DO Primary Care Provider [phone] Encounter Details Date Type Department Care Team (Latest Contact Info) Description 12/02/2018 Abstract [facility] CONVERSION[facility] Dental, Provider, DDS Social History [...] Description 11/14/2024 2:00 PM EDT Office Visit [facility] [address] [place] [address] Lea Lucas 01/16/2025 3:00 PM EDT Office Visit [facility] [address] [place] [address] Lea Lucas documented as of this encounter Visit Diagnoses Not on filedocumented in this encounter Care Teams Field Director Relationship Specialty Start Date End Date Mala Burton DO [address] [place] [address] PCP - General Family Medicine 11/10/11 documented as of this encounter
== END 2024-10-17 09:27 | disposition home or self-care (01) ==
LOC: HO.NEURO 09:26
PROVIDERS: PCP Family Medicine; Visit Provider Family Medicine
DX: R07.9 Chest pain, unspecified (principal)
CPT/HCPCS: 93306; 95886; 95913

== ENCOUNTER → 2024-10-17 09:42 | Outpatient (BNV) | payer SELFPAY | PROVIDERS: PCP Family Medicine; Visit Provider Internal Medicine Cardiovascular Disease | DX: R07.9 Chest pain, unspecified (principal) | CPT/HCPCS: 93306 ==